=== PATIENT | female | born 1940 | race Asian ===

== ENCOUNTER 2016-12-28 17:01 | Inpatient (IN) | payer MEDICARE, MEDICAID ==
[~2016-12-28] VITALS: Ht 152.4 cm; Wt 63.5 kg
[~2016-12-28 17:01] MED LIST: ASPI-231 PO; CLOP75TA28 PO; DOCU250C3 PO; FURO40TA PO; GABA-497 PO; LORA-352 PO; LORA-653 PO; METF-372 OR; METH750T3 PO; METROPROLOL PO; OME40GT PO; RANI300T3 PO; TRIP2.5T9 PO; VALS40TA2 PO; VYTORIN PO; actos PO
[2016-12-28 18:31] LABS: Basophils # (auto) 0 uL; Basophils % (auto) 0.5 % (0.0-2.0); Eosinophils # (auto) 0.2 uL; Eosinophils % (auto) 2.3 % (0.0-7.0); Hematocrit 29.2 % (36.0-46.0); Hemoglobin 9.8 g/dL (12.2-16.2); Lymphocytes # (auto) 2.4 uL; Lymphocytes % (auto) 26.7 % (10.0-50.0); Mean Corpuscular Hemoglobin 29.1 pg (28.0-32.0); Mean Corpuscular Hgb Conc. 33.4 g/dL (32.0-36.0); Mean Corpuscular Volume 87.1 fL (80.0-100.0); Mean Platelet Volume 6.3 fL (6.9-10.8); Monocytes # (auto) 0.8 uL; Monocytes % (auto) 9.4 % (0.0-12.0); Neutrophils # (auto) 5.5 uL; Neutrophils % (auto) 61.1 % (37.0-80.0); Nucleated Red Blood Cells % 0.1 %; Platelet Count (auto) 295 10^3/uL (140-450); Red Cell Distribution Width 13.4 % (11.8-14.3); White Blood Cell 8.9 10^3/uL (4.4-10.8)
[2016-12-28 18:54] LABS: Albumin 2.2 g/dL (3.4-5.0); BUN/Creatinine Ratio 19.1; Bilirubin, Total 0.3 mg/dL (0.2-1.0); Magnesium 2.6 mg/dL (1.6-2.6); Potassium 4.4 mmol/L (3.5-5.1); Total Protein 6.6 g/dL (6.4-8.2)
[2016-12-28 20:50] LABS: INR 1.04 (0.9-1.15); Partial Thromboplastin Time 34.8 sec (22.64-33.71); Prothrombin Time 11.3 sec (9.37-12.3)
[2016-12-28 21:16] LABS: Temperature: 21.5 C (20.0-25.0)
[2016-12-29] MEDS ORDERED: FUROSEMIDE 20 MG/2 ML VIAL IV ONE ×2 (00:15→13:00)
[2016-12-29] MEDS ORDERED: ACETAMINOPHEN 325 MG TAB PO PRN (01:45)
[2016-12-29] MEDS ORDERED: NITROGLYCERIN 0.4 MG SL TAB SL PRN (01:45)
[2016-12-29] MEDS ORDERED: MORPHINE SULF INJ 2 MG/ML SYRINGE 1ML IV PRN (01:45)
[2016-12-29] MEDS ORDERED: DEXTROSE (50%) 50ML SYRG IV PRN (01:45)
[2016-12-29] MEDS ORDERED: cloNIDine HCL 0.1 MG TAB PO ONE (01:45)
[2016-12-29] MEDS ORDERED: ONDANSETRON HCL 4 MG/2 ML VIAL IV PRN (01:45)
[2016-12-29] MEDS ORDERED: cloNIDine HCL 0.1 MG TAB PO PRN (01:45)
[2016-12-29] MEDS ORDERED: HYDROcodone-ACET 5/325MG TAB PO PRN (01:45)
[2016-12-29] MEDS ORDERED: TEMAZEPAM 15 MG CAP PO PRN (01:45)
[2016-12-29 03:40] VITALS: BP 103/56
[2016-12-29] MEDS: ACCU-CHEK COMFORT CURVE STRIP VI SCH ×2 (06:06→12:00)
[2016-12-29] MEDS: InsuLIN REG 1unit/0.01ml Soln (100units/ml) SC SCH ×2 (06:06→12:00)
[2016-12-29 08:55] VITALS: BP 112/53
[2016-12-29] MEDS ORDERED: ASPirin 81 mg TAB PO SCH (10:00)
[2016-12-29] MEDS ORDERED: VALSARTAN 80 MG TAB PO SCH (10:00)
[2016-12-29] MEDS ORDERED: METOPROLOL SUCCINATE XL 50 MG TAB PO SCH (10:00)
[2016-12-29] MEDS ORDERED: PANTOPRAZOLE 40 MG TAB PO SCH (10:00)
[2016-12-29] MEDS ORDERED: FUROSEMIDE 40 MG TAB PO SCH (10:00)
[2016-12-29] MEDS ORDERED: GABAPENTIN 300 MG CAP PO SCH (10:00)
[2016-12-29] MEDS ORDERED: ENOXAPARIN SOD 30 MG/0.3 ML SYRINGE SC SCH (10:00)
[2016-12-29] MEDS ORDERED: CLOPIDOGREL BISULFATE 75 MG TAB PO SCH (10:00)
[2016-12-29] MEDS ORDERED: DOXYCYCLINE 100 MG TAB/CAP PO SCH (11:00)
[2016-12-29 12:41] VITALS: BP 135/60
[2016-12-29] MEDS ORDERED: POTASSIUM CHL 10 Meq TABLET PO ONE (13:00)
[2016-12-29 14:38] VITALS: BP 135/60
== END 2016-12-29 13:50 | disposition home or self-care (01) | DRG 291 ==
LOC: ER 17:01 → EDBD 17:01 → TELE 17:02 → TELE-WESTW 12-29 03:28
PROVIDERS: ADMIT Nurse Practitioner; ATTEND Nurse Practitioner
DX: I13.0 Hypertensive heart and chronic kidney disease with heart failure and stage 1 through stage 4 chronic kidney disease, or unspecified chronic kidney disease (principal); I50.33 Acute on chronic diastolic (congestive) heart failure; E11.22 Type 2 diabetes mellitus with diabetic chronic kidney disease; E11.65 Type 2 diabetes mellitus with hyperglycemia; N17.9 Acute kidney failure, unspecified; N18.4 Chronic kidney disease, stage 4 (severe); G47.00 Insomnia, unspecified; I25.10 Atherosclerotic heart disease of native coronary artery without angina pectoris; D64.9 Anemia, unspecified; Z88.0 Allergy status to penicillin; Z79.899 Other long term (current) drug therapy; Z95.0 Presence of cardiac pacemaker; Z79.82 Long term (current) use of aspirin
CPT/HCPCS: 36415; 71010; 73030; 80053; 82962; 83036; 83735; 83880; 84484; 85025; 85379; 85610; 85730; 87081; 93005; J1815

== ENCOUNTER 2017-05-16 10:51 | Emergency (ER) | payer MEDICARE, MEDICAID ==
[~2017-05-16] VITALS: Ht 152.4 cm; Wt 56.7 kg
[~2017-05-16 10:51] MED LIST changes: -GABA-497 PO; +GABA300C10 PO
[2017-05-16 13:08] LABS: Basophils # (auto) 0 uL; Basophils % (auto) 0.2 % (0.0-2.0); Eosinophils # (auto) 0.1 uL; Eosinophils % (auto) 1.8 % (0.0-7.0); Hematocrit 35.7 % (36.0-46.0); Hemoglobin 11.9 g/dL (12.2-16.2); Lymphocytes # (auto) 2.9 uL; Lymphocytes % (auto) 36.2 % (10.0-50.0); Mean Corpuscular Hemoglobin 28.7 pg (28.0-32.0); Mean Corpuscular Hgb Conc. 33.3 g/dL (32.0-36.0); Mean Corpuscular Volume 86.3 fL (80.0-100.0); Monocytes # (auto) 0.6 uL; Monocytes % (auto) 7.3 % (0.0-12.0); Neutrophils # (auto) 4.3 uL; Neutrophils % (auto) 54.5 % (37.0-80.0); Nucleated Red Blood Cells % 0.2 %; Platelet Count (auto) 320 10^3/uL (140-450); Red Blood Cells 4.13 10^6/uL (4.0-5.20); White Blood Cell 7.9 10^3/uL (4.4-10.8)
[2017-05-16 13:28] LABS: Alanine Aminotransferase 14 U/L (13-56); Albumin 2.7 g/dL (3.4-5.0); Anion Gap 9 (5-15); Aspartate Aminotransferase 13 U/L (15-37); BUN/Creatinine Ratio 15.2; Blood Urea Nitrogen 25 mg/dL (7-18); Calcium 8.7 mg/dL (8.5-10.1); Carbon Dioxide 20 mmol/L (21-32); Chloride 104 mmol/L (98-107); GFR African American 39 mL/min; GFR Non-African American 32 mL/min; Glucose 307 mg/dL (74-106); Magnesium 2.7 mg/dL (1.6-2.6); Potassium 4.7 mmol/L (3.5-5.1); Sodium 133 mmol/L (136-145)
[2017-05-16 13:33] LABS: Alkaline Phosphatase 65 U/L (45-117); Bilirubin, Total 0.2 mg/dL (0.2-1.0)
[2017-05-16] MEDS ORDERED: SODIUM CHLORIDE 0.9% 500 ML IV ONE (15:45)
[2017-05-16] MEDS ORDERED: HYDROcodone-ACET 5/325MG TAB PO ONE (15:45)
[2017-05-16] MEDS ORDERED: cloNIDine HCL 0.1 MG TAB PO ONE (15:45)
[2017-05-16 16:58] VITALS: BP 129/64
== END 2017-05-16 17:46 | disposition home or self-care (01) ==
LOC: ER 10:51
DX: S40.012A Contusion of left shoulder, initial encounter (principal); S70.02XA Contusion of left hip, initial encounter; S90.31XA Contusion of right foot, initial encounter; R55 Syncope and collapse; I16.0 Hypertensive urgency; I10 Essential (primary) hypertension; I25.10 Atherosclerotic heart disease of native coronary artery without angina pectoris; E11.65 Type 2 diabetes mellitus with hyperglycemia; Z98.51 Tubal ligation status; Z96.89 Presence of other specified functional implants; Z79.82 Long term (current) use of aspirin; Z88.0 Allergy status to penicillin; W19.XXXA Unspecified fall, initial encounter; Y93.89 Activity, other specified; Y92.89 Other specified places as the place of occurrence of the external cause; Y99.8 Other external cause status
CPT/HCPCS: 36415; 70450; 73030; 73502; 73630; 80053; 83735; 84484; 85025; 93005

== ENCOUNTER 2017-08-07 20:07 | Inpatient (IN) | payer MEDICARE, MEDICAID ==
[~2017-08-07] VITALS: Ht 152.4 cm; Wt 59.1 kg
[2017-08-07] MEDS ORDERED: SODIUM CHLORIDE 0.9% 1,000 ML IVB ONE (20:33)
[2017-08-07 21:15] LABS: Basophils # (auto) 0 uL; Basophils % (auto) 0.1 % (0.0-2.0); Eosinophils # (auto) 0.2 uL; Eosinophils % (auto) 1.8 % (0.0-7.0); Hematocrit 29.4 % (36.0-46.0); Hemoglobin 9.8 g/dL (12.2-16.2); Lymphocytes # (auto) 1.8 uL; Lymphocytes % (auto) 19.2 % (10.0-50.0); Mean Corpuscular Hemoglobin 29.1 pg (28.0-32.0); Mean Corpuscular Hgb Conc. 33.4 g/dL (32.0-36.0); Mean Corpuscular Volume 87.1 fL (80.0-100.0); Monocytes # (auto) 1.1 uL; Monocytes % (auto) 11.8 % (0.0-12.0); Neutrophils # (auto) 6.2 uL; Neutrophils % (auto) 67.1 % (37.0-80.0); Platelet Count (auto) 400 10^3/uL (140-450); Red Blood Cells 3.37 10^6/uL (4.0-5.20); Red Cell Distribution Width 13.8 % (11.8-14.3); White Blood Cell 9.3 10^3/uL (4.4-10.8)
[2017-08-07 21:26] LABS: Alanine Aminotransferase 16 U/L (13-56); Albumin 2.1 g/dL (3.4-5.0); Amylase 61 U/L (25-115); Anion Gap 9 (5-15); Aspartate Aminotransferase 14 U/L (15-37); BUN/Creatinine Ratio 14.7; Blood Urea Nitrogen 24 mg/dL (7-18); Calcium 8.3 mg/dL (8.5-10.1); Carbon Dioxide 23 mmol/L (21-32); Chloride 105 mmol/L (98-107); GFR African American 39 mL/min; GFR Non-African American 33 mL/min; Glucose 215 mg/dL (74-106); Lipase 642 U/L (73-393); Potassium 4.4 mmol/L (3.5-5.1); Sodium 137 mmol/L (136-145)
[2017-08-07 21:31] LABS: Alkaline Phosphatase 58 U/L (45-117); Bilirubin, Total 0.3 mg/dL (0.2-1.0); Total Protein 6.5 g/dL (6.4-8.2)
[2017-08-07 22:19] LABS: INR 1.14 (0.9-1.15); Partial Thromboplastin Time 33.6 sec (22.64-33.71); Prothrombin Time 12.4 sec (9.37-12.3)
[2017-08-07] MEDS ORDERED: ACETAMINOPHEN 325 MG TAB PO PRN (23:45)
[2017-08-07] MEDS ORDERED: ONDANSETRON HCL 4 MG/2 ML VIAL IV PRN (23:45)
[2017-08-07] MEDS ORDERED: FUROSEMIDE 40 MG/4 ML VIAL IV ONE (23:45)
[2017-08-07] MEDS ORDERED: MORPHINE SULFATE 4 MG/ML SYR/VIAL IV PRN (23:45)
[2017-08-07] MEDS ORDERED: NITROGLYCERIN 0.4 MG SL TAB SL PRN (23:45)
[2017-08-07] MEDS ORDERED: ALBUTEROL SULF 2.5 MG/0.5ML(0.5%) NEB SOLN NEB PRN (23:45)
[2017-08-07] MEDS ORDERED: ENOXAPARIN SOD 100 MG/1 ML SYRINGE SC ONE (23:45)
[2017-08-07] MEDS ORDERED: DEXTROSE (50%) 50ML SYRG IV PRN (23:45)
[2017-08-07] MEDS ORDERED: HYDROcodone-ACET 5/325MG TAB PO PRN (23:45)
[2017-08-08] VITALS (9 sets, daily range): BP systolic 139–179; BP diastolic 47–76
[2017-08-08] MEDS: InsuLIN REG 1unit/0.01ml Soln (100units/ml) SC SCH ×4 (00:13→18:13)
[2017-08-08] MEDS: ACCU-CHEK COMFORT CURVE STRIP VI SCH ×4 (00:24→18:14)
[2017-08-08] MEDS: TEMAZEPAM 15 MG CAP PO PRN ×2 (03:23→22:13)
[2017-08-08 05:05] LABS: Urine Bacteria NONE SEEN /hpf (None Seen); Urine Blood 1+ /uL (Negative); Urine Hyaline Cast FEW /lpf (0 - 2); Urine Mucus FEW (None Seen); Urine Specific Gravity 1.006 (1.001-1.035); Urine WBC 1 /hpf (0 - 5)
[2017-08-08] MEDS: metroNIDAZOLE 500MG/100ML 100 ML IV SCH ×2 (05:53→17:00)
[2017-08-08] MEDS ORDERED: FUROSEMIDE 20 MG/2 ML VIAL IV SCH (06:00)
[2017-08-08 09:48] LABS: Basophils # (auto) 0 uL; Basophils % (auto) 0.5 % (0.0-2.0); Eosinophils # (auto) 0.2 uL; Eosinophils % (auto) 2.4 % (0.0-7.0); Hemoglobin 10.5 g/dL (12.2-16.2); Lymphocytes # (auto) 2.4 uL; Lymphocytes % (auto) 31.3 % (10.0-50.0); Mean Corpuscular Hemoglobin 28.9 pg (28.0-32.0); Mean Corpuscular Volume 87.5 fL (80.0-100.0); Monocytes # (auto) 0.7 uL; Monocytes % (auto) 8.8 % (0.0-12.0); Neutrophils # (auto) 4.3 uL; Platelet Count (auto) 419 10^3/uL (140-450); Red Blood Cells 3.65 10^6/uL (4.0-5.20); Red Cell Distribution Width 13.6 % (11.8-14.3); White Blood Cell 7.6 10^3/uL (4.4-10.8)
[2017-08-08] MEDS: LEVOFLOXACIN 250MG 50 ML IV SCH (09:56)
[2017-08-08] MEDS: ASPirin 81 mg TAB PO SCH (09:57)
[2017-08-08] MEDS: VALSARTAN 80 MG TAB PO SCH (09:58)
[2017-08-08] MEDS: METOPROLOL SUCCINATE XL 50 MG TAB PO SCH (09:58)
[2017-08-08] MEDS: PANTOPRAZOLE 40 MG TAB PO SCH (09:58)
[2017-08-08] MEDS: GABAPENTIN 300 MG CAP PO SCH ×2 (09:59→22:13)
[2017-08-08] MEDS: CLOPIDOGREL BISULFATE 75 MG TAB PO SCH (09:59)
[2017-08-08] MEDS ORDERED: ENOXAPARIN SOD 30 MG/0.3 ML SYRINGE SC SCH (10:00)
[2017-08-08 10:05] LABS: Albumin 2.3 g/dL (3.4-5.0); BUN/Creatinine Ratio 11.1; Calcium 8.4 mg/dL (8.5-10.1); Potassium 3.8 mmol/L (3.5-5.1)
[2017-08-08 10:08] LABS: Bilirubin, Total 0.3 mg/dL (0.2-1.0); Total Protein 6.6 g/dL (6.4-8.2)
[2017-08-08] MEDS ORDERED: FUROSEMIDE 40 MG/4 ML VIAL IV ONE (10:30)
[2017-08-08] MEDS: cloNIDine HCL 0.1 MG TAB PO PRN (11:41)
[2017-08-08] MEDS: FUROSEMIDE 40 MG/4 ML VIAL IV SCH (18:13)
[2017-08-08] MEDS: ENOXAPARIN SOD 60 MG/0.6 ML SYRINGE SC SCH (22:14)
[2017-08-09] MEDS: ACCU-CHEK COMFORT CURVE STRIP VI SCH ×4 (00:35→18:22)
[2017-08-09] MEDS: InsuLIN REG 1unit/0.01ml Soln (100units/ml) SC SCH ×4 (00:35→18:22)
[2017-08-09 05:00] VITALS: BP 146/70
[2017-08-09] MEDS: FUROSEMIDE 40 MG/4 ML VIAL IV SCH ×2 (06:14→18:21)
[2017-08-09 09:00] VITALS: BP 149/66
[2017-08-09] MEDS: LEVOFLOXACIN 250MG 50 ML IV SCH (10:03)
[2017-08-09] MEDS: CLOPIDOGREL BISULFATE 75 MG TAB PO SCH (10:04)
[2017-08-09] MEDS: ASPirin 81 mg TAB PO SCH (10:04)
[2017-08-09] MEDS: VALSARTAN 80 MG TAB PO SCH (10:04)
[2017-08-09] MEDS: GABAPENTIN 300 MG CAP PO SCH ×2 (10:04→22:04)
[2017-08-09] MEDS: PANTOPRAZOLE 40 MG TAB PO SCH (10:05)
[2017-08-09] MEDS: ENOXAPARIN SOD 60 MG/0.6 ML SYRINGE SC SCH (10:05)
[2017-08-09] MEDS: METOPROLOL SUCCINATE XL 50 MG TAB PO SCH (10:05)
[2017-08-09 13:00] VITALS: BP 163/81
[2017-08-09] MEDS ORDERED: VANCOMYCIN PER PHARMACY 0 MG IV SCH (13:15)
[2017-08-09] MEDS ORDERED: PIPERACILLIN-TAZOB 2.25GM 50 ML IV ONE (14:00)
[2017-08-09] MEDS: cloNIDine HCL 0.1 MG TAB PO PRN (14:28)
[2017-08-09] MEDS ORDERED: APIXABAN 5 MG TAB PO ONE (14:53)
[2017-08-09] MEDS ORDERED: VANCOMYCIN 500 MG in D5W 5% 100 ML IV ONE (15:00)
[2017-08-09] MEDS ORDERED: VANCOMYCIN 500 MG in D5W 5% 100 ML IV SCH (15:00)
[2017-08-09 15:02] LABS: Potassium 3.9 mmol/L (3.5-5.1)
[2017-08-09 15:08] LABS: Albumin 2.2 g/dL (3.4-5.0); BUN/Creatinine Ratio 15.1; Calcium 8.3 mg/dL (8.5-10.1)
[2017-08-09 15:11] LABS: Bilirubin, Total 0.3 mg/dL (0.2-1.0); Total Protein 6.4 g/dL (6.4-8.2)
[2017-08-09 17:00] VITALS: BP 141/78
[2017-08-09] MEDS ORDERED: PIPERACILLIN-TAZOB 2.25GM 50 ML IV SCH (18:00)
[2017-08-09] MEDS ORDERED: RIVAROXABAN 15 MG TAB PO SCH (22:00)
[2017-08-09 22:45] VITALS: BP 141/61
[2017-08-10] MEDS: ACCU-CHEK COMFORT CURVE STRIP VI SCH ×5 (00:01→23:32)
[2017-08-10] MEDS: InsuLIN REG 1unit/0.01ml Soln (100units/ml) SC SCH ×5 (00:02→23:32)
[2017-08-10] MEDS ORDERED: APIXABAN 5 MG TAB PO SCH (05:00)
[2017-08-10] MEDS: FUROSEMIDE 40 MG/4 ML VIAL IV SCH (05:25)
[2017-08-10 05:45] VITALS: BP 114/58
[2017-08-10 06:47] LABS: Albumin 2.1 g/dL (3.4-5.0); BUN/Creatinine Ratio 13.8; Calcium 8.1 mg/dL (8.5-10.1); Potassium 3.8 mmol/L (3.5-5.1)
[2017-08-10 06:49] LABS: Bilirubin, Total 0.3 mg/dL (0.2-1.0); Total Protein 6.3 g/dL (6.4-8.2)
[2017-08-10 09:00] VITALS: BP 145/70
[2017-08-10] MEDS: ASPirin 81 mg TAB PO SCH (09:52)
[2017-08-10] MEDS: GABAPENTIN 300 MG CAP PO SCH ×2 (09:53→21:13)
[2017-08-10] MEDS: VALSARTAN 80 MG TAB PO SCH (09:53)
[2017-08-10] MEDS: PANTOPRAZOLE 40 MG TAB PO SCH (09:54)
[2017-08-10] MEDS: CLOPIDOGREL BISULFATE 75 MG TAB PO SCH (09:54)
[2017-08-10] MEDS: METOPROLOL SUCCINATE XL 50 MG TAB PO SCH (09:55)
[2017-08-10] MEDS: LEVOFLOXACIN 250 MG TAB PO SCH (12:10)
[2017-08-10 13:00] VITALS: BP 138/59
[2017-08-10 16:58] VITALS: BP 140/60
[2017-08-10] MEDS: TEMAZEPAM 15 MG CAP PO PRN (21:14)
[2017-08-10 22:00] VITALS: BP 163/72
[2017-08-11 03:22] VITALS: BP 163/72
[2017-08-11 05:00] VITALS: BP 134/58
[2017-08-11] MEDS: InsuLIN REG 1unit/0.01ml Soln (100units/ml) SC SCH ×2 (06:00→12:23)
[2017-08-11] MEDS: ACCU-CHEK COMFORT CURVE STRIP VI SCH ×2 (06:13→12:23)
[2017-08-11 07:24] LABS: Albumin 2.2 g/dL (3.4-5.0); Potassium 3.7 mmol/L (3.5-5.1)
[2017-08-11 07:27] LABS: BUN/Creatinine Ratio 17.5; Calcium 8.7 mg/dL (8.5-10.1)
[2017-08-11 07:30] LABS: Bilirubin, Total 0.3 mg/dL (0.2-1.0); Total Protein 6.5 g/dL (6.4-8.2)
[2017-08-11 08:13] VITALS: BP 163/51
[2017-08-11] MEDS ORDERED: FUROSEMIDE 40 MG/4 ML VIAL IV SCH (10:00)
[2017-08-11] MEDS: ASPirin 81 mg TAB PO SCH (10:23)
[2017-08-11] MEDS: CLOPIDOGREL BISULFATE 75 MG TAB PO SCH (10:24)
[2017-08-11] MEDS: LEVOFLOXACIN 250 MG TAB PO SCH (10:24)
[2017-08-11] MEDS: PANTOPRAZOLE 40 MG TAB PO SCH (10:24)
[2017-08-11] MEDS: GABAPENTIN 300 MG CAP PO SCH (10:24)
[2017-08-11] MEDS: VALSARTAN 80 MG TAB PO SCH (10:24)
[2017-08-11] MEDS: METOPROLOL SUCCINATE XL 50 MG TAB PO SCH (10:25)
[2017-08-11] MEDS ORDERED: hydrALAZINE HCL 10 MG TAB PO ONE (11:15)
[2017-08-11 14:23] VITALS: BP 140/70
[2017-08-16] MEDS ORDERED: APIXABAN 5 MG TAB PO SCH (17:00)
== END 2017-08-11 16:15 | disposition home or self-care (01) | DRG 291 ==
LOC: ER 20:07 → EDBD 20:07 → TELE 20:08 → TELE-CENTR 08-08 04:00 → CENTRAL 08-10 12:07
PROVIDERS: ADMIT Nurse Practitioner; ATTEND Internal Medicine Pulmonary Disease
DX: I13.0 Hypertensive heart and chronic kidney disease with heart failure and stage 1 through stage 4 chronic kidney disease, or unspecified chronic kidney disease (principal); K85.80 Other acute pancreatitis without necrosis or infection; J96.20 Acute and chronic respiratory failure, unspecified whether with hypoxia or hypercapnia; E11.22 Type 2 diabetes mellitus with diabetic chronic kidney disease; E11.65 Type 2 diabetes mellitus with hyperglycemia; N18.3 Chronic kidney disease, stage 3 (moderate); I50.33 Acute on chronic diastolic (congestive) heart failure; I44.30 Unspecified atrioventricular block; D64.9 Anemia, unspecified; E78.5 Hyperlipidemia, unspecified; I25.10 Atherosclerotic heart disease of native coronary artery without angina pectoris; Z82.49 Family history of ischemic heart disease and other diseases of the circulatory system; Z83.3 Family history of diabetes mellitus; Z90.49 Acquired absence of other specified parts of digestive tract; Z95.0 Presence of cardiac pacemaker; Z88.0 Allergy status to penicillin; Z98.51 Tubal ligation status; Z79.82 Long term (current) use of aspirin; Z79.899 Other long term (current) drug therapy
CPT/HCPCS: 36415; 36600; 71045; 71046; 74176; 78582; 80053; 81001; 82150; 82805; 82962; 83036; 83605; 83690; 83735; 83880; 84484; 85025; 85379; 85610; 85730; 87040; 87077; 87081; 87186; 93005; 93306; 93970; 96361; 96365; 96367; 96372; 96375; J1815; J2543; J3490; J7060

== ENCOUNTER 2018-10-04 17:25 | Inpatient (IN) | payer MEDICARE, MEDICAID ==
[~2018-10-04] VITALS: Ht 152.4 cm; Wt 56.7 kg
[2018-10-04 18:15] LABS: Basophils # (auto) 0.1 uL; Eosinophils # (auto) 0.1 uL; Eosinophils % (auto) 1.5 % (0.0-7.0); Hematocrit 34.5 % (36.0-46.0); Hemoglobin 11.1 g/dL (12.2-16.2); Lymphocytes # (auto) 1.3 uL; Lymphocytes % (auto) 19.2 % (10.0-50.0); Mean Corpuscular Hemoglobin 29.8 pg (28.0-32.0); Mean Corpuscular Hgb Conc. 32.3 g/dL (32.0-36.0); Mean Corpuscular Volume 92.3 fL (80.0-100.0); Monocytes # (auto) 0.5 uL; Monocytes % (auto) 6.9 % (0.0-12.0); Neutrophils # (auto) 4.6 uL; Neutrophils % (auto) 70.4 % (37.0-80.0); Platelet Count (auto) 267 10^3/uL (140-450); Red Blood Cells 3.74 10^6/uL (4.0-5.20); Red Cell Distribution Width 14.9 % (11.8-14.3); White Blood Cell 6.5 10^3/uL (4.4-10.8)
[2018-10-04 18:25] LABS: Calcium 8.6 mg/dL (8.5-10.1)
[2018-10-04 18:34] LABS: Albumin 3.3 g/dL (3.4-5.0); BUN/Creatinine Ratio 5.1; Bilirubin, Total 0.4 mg/dL (0.2-1.0); Total Protein 7.5 g/dL (6.4-8.2)
[2018-10-04 18:37] LABS: INR 1.04 (0.9-1.15); Partial Thromboplastin Time 33.2 sec (23.64-32.05)
[2018-10-04] MEDS ORDERED: LABETALOL HCL 5 MG/ML ML 20ML VIAL IV ONE (19:30)
[2018-10-04 20:43] LABS: Urine Bacteria NONE SEEN /hpf (None Seen); Urine Blood TRACE /uL (Negative); Urine Specific Gravity 1.008 (1.001-1.035); Urine WBC 18 /hpf (0 - 5)
[2018-10-04] MEDS ORDERED: DEXTROSE (50%) 50ML SYRG IV PRN (22:00)
[2018-10-04] MEDS ORDERED: VANCOMYCIN 1GM/250ML 250 ML IV ONE (22:00)
[2018-10-04] MEDS ORDERED: LORazepam 2MG/ML-1ML VIAL IV PRN (22:00)
[2018-10-04] MEDS ORDERED: ACETAMINOPHEN 650 MG RECT SUPP PR PRN (22:00)
[2018-10-04] MEDS ORDERED: ACETAMINOPHEN 650 MG RECT SUPP PR ONE (22:00)
[2018-10-04] MEDS ORDERED: hydrALAZINE HCL 20 MG/ML VL IV PRN (22:15)
[2018-10-04] MEDS ORDERED: FUROSEMIDE 20 MG/2 ML VIAL IV SCH (22:15)
[2018-10-04] MEDS ORDERED: VANCOMYCIN PER PHARMACY 0 MG IV SCH (22:15)
[2018-10-04] MEDS ORDERED: LEVOFLOXACIN 250MG 50 ML IV ONE (23:00)
[2018-10-04] MEDS: ACCU-CHEK COMFORT CURVE STRIP VI SCH (23:33)
[2018-10-04] MEDS: InsuLIN REG 1unit/0.01ml Soln (100units/ml) SC SCH (23:33)
[2018-10-05] VITALS (7 sets, daily range): BP systolic 129–162; BP diastolic 60–86
--- NOTE | 2018-10-05 00:15 | NUR ---
tele admit from ER. pt arrived via stretcher with 4 family accompanying. pt awake, alert and oriented. no distress noted or expressed. pt denied any pain via translation from family. pt ambulated to bed with standby assist. pt bed locked, in lowest position and siderails up x2. pt on 2L NC saturation 95%. pt oriented to nurse Colon, room, call light and tv. pt is tele 21, showing paced rhythm in the 70's. pt family reports dialysis fistula left upper arm as well as dialysis port right upper chest. pt has 20g iv to right forearm, flushes easily, dressing CDI. pt an dfamily updated on plan of care. no further questions from family and confirmed with family that pt has no additional questions. pt is NPO for difficulty swallowing pending eval from speech therapy. bed alarm activated. call light in reach. will round on pt q1hr and prn.
[2018-10-05] MEDS: InsuLIN REG 1unit/0.01ml Soln (100units/ml) SC SCH ×4 (06:27→23:34)
[2018-10-05] MEDS: ACCU-CHEK COMFORT CURVE STRIP VI SCH ×4 (06:28→23:35)
[2018-10-05 08:20] LABS: Basophils # (auto) 0 uL; Basophils % (auto) 0.5 % (0.0-2.0); Eosinophils # (auto) 0.1 uL; Eosinophils % (auto) 0.9 % (0.0-7.0); Hematocrit 29.6 % (36.0-46.0); Hemoglobin 9.8 g/dL (12.2-16.2); Lymphocytes # (auto) 1.5 uL; Lymphocytes % (auto) 26.1 % (10.0-50.0); Mean Corpuscular Hemoglobin 30.5 pg (28.0-32.0); Mean Corpuscular Volume 92.4 fL (80.0-100.0); Monocytes # (auto) 0.6 uL; Monocytes % (auto) 9.9 % (0.0-12.0); Neutrophils # (auto) 3.6 uL; Neutrophils % (auto) 62.6 % (37.0-80.0); Nucleated Red Blood Cells % 0.1 %; Platelet Count (auto) 227 10^3/uL (140-450); Red Cell Distribution Width 14.8 % (11.8-14.3); White Blood Cell 5.8 10^3/uL (4.4-10.8)
[2018-10-05 08:22] LABS: Anion Gap 9 (5-15); BUN/Creatinine Ratio 6.7; Blood Urea Nitrogen 17 mg/dL (7-18); Calcium 8.2 mg/dL (8.5-10.1); Carbon Dioxide 28 mmol/L (21-32); Chloride 106 mmol/L (98-107); GFR African American 23 mL/min; GFR Non-African American 19 mL/min; Glucose 155 mg/dL (74-106); Sodium 143 mmol/L (136-145)
[2018-10-05] MEDS ORDERED: ENOXAPARIN SOD 40 MG/0.4 ML SYRINGE SC SCH (10:00)
[2018-10-05] MEDS: LEVOFLOXACIN 250MG 50 ML IV SCH (11:12)
[2018-10-05] MEDS: FAMOTIDINE (10MG/ML) 2ML VL IV SCH (11:13)
[2018-10-05] MEDS: ENOXAPARIN SOD 30 MG/0.3 ML SYRINGE SC SCH (11:13)
--- NOTE | 2018-10-05 11:26 | NUR ---
SWALLOW EVALUATED WITH FAMILY PRESENT AND TRANSLATING TO PATIENT. PATIENT HAS DENTURES UPPER AND LOWER. PATIENT NEEDED MAXIMUM CUEING AND ENCOURAGEMENT TO SWALLOW PUREE TRIAL. PATIENT ABLE TO TOLERATE PUREE DIET TEXTURE WITH THIN LIQUIDS WITH NO OVERT SIGNS OR SYMPTOMS OF ASPIRATION. NURSING NOTIFIED. PATIENT WILL NEED ASSISTANCE WITH FEEDING.
--- NOTE | 2018-10-05 11:30 | NUR ---
Scheduled accu-check done via pt's [employer] device by family member, with reading of 202. Sliding scale, regular Insulin administered as ordered.
[2018-10-05] MEDS ORDERED: LORazepam 2MG/ML-1ML VIAL IV PRN (13:00)
[2018-10-05] MEDS ORDERED: hydrALAZINE HCL 20 MG/ML VL IV PRN (13:15)
--- NOTE | 2018-10-05 13:30 | NUR ---
Call placed to [facility] for pacemaker interrogation at per Dr. Chacon's request.
[2018-10-05 13:37] LABS: Cholesterol 123 mg/dL (< 200); Triglycerides 84 mg/dL (< 150)
[2018-10-05 13:39] LABS: HDL Cholesterol 57 mg/dL (40-59); LDL Cholesterol 67 mg/dL (< 100)
--- NOTE | 2018-10-05 15:30 | NUR ---
Per visit from [facility] hardware technician, pt is serviced by [employer].
--- NOTE | 2018-10-05 15:45 | NUR ---
Called placed to Ajaline at for pacemaker interrogation.
--- NOTE | 2018-10-05 19:40 | NUR ---
open note assumed care of pt. upon entering room pt awake, alert and oriented x4. family at bedside. pt on 2L NC no distress noted or expressed. pt denies pain. pt and family updated on plan of care. no additional questions at this time. pt and family made aware that pacer is to be interrogated in the AM. call light in reach, button modified that pt is able to locate and press to alert staff of need. will round on pt q1hr and prn. bed alarm on.
[2018-10-05] MEDS: ATORVASTATIN 20 MG TAB PO SCH (22:24)
[2018-10-06 05:00] VITALS: BP 160/79
[2018-10-06] MEDS: ACCU-CHEK COMFORT CURVE STRIP VI SCH ×4 (06:30→23:07)
[2018-10-06] MEDS: InsuLIN REG 1unit/0.01ml Soln (100units/ml) SC SCH ×4 (06:30→23:06)
--- NOTE | 2018-10-06 06:36 | NUR ---
RECEIVED PT OFF CPAP MACHINE. PT ON ROOM AIR, SPO2 94%.
[2018-10-06 06:41] LABS: Potassium 4.4 mmol/L (3.5-5.1)
[2018-10-06 06:49] LABS: Basophils # (auto) 0 uL; Basophils % (auto) 0.4 % (0.0-2.0); Eosinophils # (auto) 0.1 uL; Eosinophils % (auto) 1.5 % (0.0-7.0); Hematocrit 30.7 % (36.0-46.0); Hemoglobin 10.2 g/dL (12.2-16.2); Lymphocytes # (auto) 1.6 uL; Lymphocytes % (auto) 21.5 % (10.0-50.0); Mean Corpuscular Hemoglobin 30.9 pg (28.0-32.0); Mean Corpuscular Hgb Conc. 33.3 g/dL (32.0-36.0); Mean Corpuscular Volume 92.9 fL (80.0-100.0); Monocytes # (auto) 0.7 uL; Monocytes % (auto) 8.7 % (0.0-12.0); Neutrophils # (auto) 5.1 uL; Neutrophils % (auto) 67.9 % (37.0-80.0); Nucleated Red Blood Cells % 0.1 %; Platelet Count (auto) 221 10^3/uL (140-450); White Blood Cell 7.4 10^3/uL (4.4-10.8)
[2018-10-06 06:50] LABS: BUN/Creatinine Ratio 6.6; Bilirubin, Total 1.1 mg/dL (0.2-1.0); Magnesium 2.6 mg/dL (1.6-2.6); Total Protein 6.8 g/dL (6.4-8.2)
--- NOTE | 2018-10-06 07:30 | NUR ---
OPENING SHIFT NOTE: Received report from NOC RNIsaiah. Assumed care of patient. Patient lying in bed, sleeping, no signs/symptoms of pain. Bed in lowest position, rails x2 up and call light within reach. Updated on plan of care. Will continue to monitor.
[2018-10-06 09:11] VITALS: BP 159/76
[2018-10-06] MEDS: ASPirin-EC 81 mg tab PO SCH (09:42)
[2018-10-06] MEDS: ENOXAPARIN SOD 30 MG/0.3 ML SYRINGE SC SCH (09:43)
[2018-10-06] MEDS: LEVOFLOXACIN 250MG 50 ML IV SCH (09:43)
[2018-10-06] MEDS: FAMOTIDINE (10MG/ML) 2ML VL IV SCH (09:50)
--- NOTE | 2018-10-06 11:20 | NUR ---
MD: Dr Knight at bedside to see patient.
--- NOTE | 2018-10-06 11:40 | NUR ---
MRI: Called [facility] atm technician and informed him that per Dr Knight the patient's pacemaker is MRI compatible. [facility] is requesting to see pacemaker card. Copy of pacemaker card made and left in front of chart. [facility]ias is aware.
--- NOTE | 2018-10-06 12:00 | NUR ---
MD: Dr Barbosa at bedside to see patient.
[2018-10-06] MEDS: ONDANSETRON HCL 4 MG/2 ML VIAL IV PRN ×2 (12:45→17:00)
[2018-10-06] MEDS ORDERED: FLUCONAZOLE 200MG/100ML 100 ML IV ONE (12:45)
--- NOTE | 2018-10-06 12:46 | NUR ---
NAUSEA/EMESIS: RN called to room. Patient had been eating lunch with family at bedside and began to throw up. Patient noted to have emesis that consisted of eaten food. Medicated with Zofran as ordered. Patient in no distress. Will continue to monitor.
[2018-10-06 13:00] VITALS: BP 166/73
--- NOTE | 2018-10-06 13:01 | NUR ---
MRI: S/W [facility], business office technician. Pacemaker is MRI compatible. [facility] has placed a call out to tech to schedule a time to do MRI since pacemaker will need to be turned off for scan and then restarted. Dr Knight is aware.
--- NOTE | 2018-10-06 13:45 | NUR ---
MRI: Spoke to [facility] who spoke to Dr Falcon. MRI will be cancelled right now per Dr Falcon's request. MD to come see patient and plan is to order a follow up head CT instead.
--- NOTE | 2018-10-06 14:47 | NUR ---
Per SS consult SNF Placement. Information and Choice letter was given to Pt. Pt was unable to speak due to her weakens and change of speech. Per Pt daughter Surekha requested [facility]. Pt daughter agrees and understand d/c plan. Contacted [facility] ) ) faxed medical records. Per Candace from [facility] Pt has been accepted and she will come see pt tomorrow 10/07/18 at bed side. Informed RN Francine. Addendum: 10/06/18 at 1501 by KARLEY SHRESTHA Amended: Links added. Addendum: 10/07/18 at 1727 by KARLEY SHRESTHA Contacted [facility] transportation Ph: ) Fax: ) faxed medical records. Per Rosanna from [facility] they will call RN Juwan once they have cherry picker operator time available for today. Informed CHIQUI Echeverria.
[2018-10-06 16:55] VITALS: BP 152/73
--- NOTE | 2018-10-06 18:55 | NUR ---
MD: Dr Falcon to see patient. is cancelling MRI and will order for a repeat/follow up head CT.
--- NOTE | 2018-10-06 19:19 | NUR ---
CLOSING SHIFT NOTE: Report given to NOC RNIvonne. Endorsed care of patient.
--- NOTE | 2018-10-06 19:30 | NUR ---
Opening shift note Patient in bed alert and oriented x 3, able to understand Gambian only. Patient noted aphasic, however, able to nod head for yes or no when family talks to patient in Gambian. Patient's respiration even and unlabored, denies pain and discomfort at this time. Plan of care discussed, patient and family verbalized understanding. All needs attended, will continue to monitor.
--- NOTE | 2018-10-06 19:40 | NUR ---
Pt off unit for CT head. Picked up by radiology via wheelchair.
--- NOTE | 2018-10-06 20:05 | NUR ---
Patient back in bed in stable condition. Will continue to monitor.
--- NOTE | 2018-10-06 20:30 | NUR ---
Pt accidentally wet self while drinking water assisted by daughter. Dressing to [facility] cath dialysis soiled and wet. Dressing change done. Pt tolerated procedure well.
--- NOTE | 2018-10-06 20:35 | NUR ---
Additional contact lens cutter provided by dtr. Password set up done.
[2018-10-06 21:33] VITALS: BP 161/86
[2018-10-06] MEDS: ATORVASTATIN 20 MG TAB PO SCH (21:40)
--- NOTE | 2018-10-06 22:50 | NUR ---
Patient removed CPAP machine. Refused to have it reattached. No SOB noted and observed. Will continue to monitor.
[2018-10-07 04:25] VITALS: BP 140/83
[2018-10-07] MEDS: InsuLIN REG 1unit/0.01ml Soln (100units/ml) SC SCH ×3 (05:30→18:00)
[2018-10-07] MEDS: ACCU-CHEK COMFORT CURVE STRIP VI SCH ×3 (05:30→18:01)
[2018-10-07] MEDS ORDERED: SODIUM CHL 0.9% 1000 ML BAG XX ONE (07:00)
--- NOTE | 2018-10-07 07:18 | NUR ---
Respiratory note: PT ALREADY OFF CPAP, SLEEPING COMFORTABLY IN BED. NO S/S OF RESPIRATORY DISTRESS. WROTE RT NAME AND PAGER NUMBER ON WHITEBOARD.
--- NOTE | 2018-10-07 07:30 | NUR ---
Opening Shift Note Assumed care of patient, resting comfortably. No S/S of distress/SOB or pain. Instructed on POC and to call for assist PRN, will continue to monitor for changes Q1hr and PRN. Bed in low and locked position, rails up x2, no-slip socks on.
[2018-10-07 09:00] VITALS: BP 156/75
--- NOTE | 2018-10-07 09:20 | NUR ---
[facility] [employer] AT BEDSIDE SPOKE TO FAMILY, A[place]- DAUGHTER
[2018-10-07] MEDS ORDERED: FLUCONAZOLE 200MG/100ML 100 ML IV SCH (10:00)
--- NOTE | 2018-10-07 10:30 | NUR ---
IV removal AND IV insertion IV DC'd with clean sterile technique, catheter fully intact. Pressure dressing applied to site. Patient tolerated well. IV access obtained, via clean sterile technique by inserting 22 gauge catheter at right forearm after 3 attempts. IV secured properly. No trauma to site. Patient tolerated well.
--- NOTE | 2018-10-07 10:35 | NUR ---
DR GAN AT BEDSIDE
--- NOTE | 2018-10-07 11:15 | NUR ---
FAMILY CALL PASSWORD VERIFIED, SPOKE TO PATIENTS DAUGHTER NATALY ([phone]), CONCERNED THAT PATIENT IS NOT GETTING AN MRI. PAGE SENT OUT TO DR GAN TO REQUEST A FAMILY PHONE CALL REGARDING PLAN OF CARE, AWAITING CALL BACK.
[2018-10-07] MEDS: ENOXAPARIN SOD 30 MG/0.3 ML SYRINGE SC SCH (12:11)
[2018-10-07] MEDS: ASPirin-EC 81 mg tab PO SCH (12:11)
[2018-10-07] MEDS: FAMOTIDINE (10MG/ML) 2ML VL IV SCH (12:11)
--- NOTE | 2018-10-07 12:15 | NUR ---
DR GAN AT BEDSIDE SPOKE TO NALLELY REGARDING CONCERNS ABOUT THE MRI. DR GAN EXPLAINED AT LENGTH THAT THEY WILL NOT NEED ADDITIONAL DIAGNOSTIC TESTING THE HEAD CT HAS SHOWN THE ACUTE STROKE. FAMILY VERBALIZES UNDERSTANDING AND IS ADVISED TO NOTIFY THE REST OF THE FAMILY TO ADDRESS THEIR QUESTIONS.
--- NOTE | 2018-10-07 12:24 | NUR ---
RACK WASHER AT BEDSIDE
[2018-10-07 13:00] VITALS: BP 157/81
--- NOTE | 2018-10-07 15:25 | NUR ---
DIALYSIS COMPLETED 2L REMOVED. PATIENT TOLERATED WELL BP 143/56 HR 69 RR 18 Addendum: 10/07/18 at 1703 by JACINDA WHEAT RN RN PER [facility], HE HAS ADMINISTERED HEPARIN AND EPOGEN ORDERED DURING DIALYSIS.
[2018-10-07 17:00] VITALS: BP 155/71
--- NOTE | 2018-10-07 18:54 | NUR ---
REPORT CALLED TO [facility] SPOKE TO BAUDILIO, CHARGE NURSE, , PATIENT GOING TO ROOM 108 WINDOW
--- NOTE | 2018-10-07 19:04 | NUR ---
DISCHARGE Discharge instructions given as ordered. Encourage to follow up with PMD as instructed. All questions and concerns addressed. Patient verbalized understanding. IV removed with catheter intact, pressure dressing applied. Telemetry unit returned to [facility]. Patient taken to vehicle via gurney with all personal belongings, accompanied by transportation staff and family members. No distress noted at time of departure.
[2018-10-07] MEDS ORDERED: EPOETIN ALFA 4,000 UNIT/ML VL SC ONE (21:00)
[2018-10-08] MEDS ORDERED: LEVOFLOXACIN 250MG 50 ML IV SCH (10:00)
== END 2018-10-07 19:05 | DRG 64 ==
LOC: ER 17:28 → TELE 17:29 → TELE-WESTW 22:48
PROVIDERS: ADMIT Nurse Practitioner Family; ATTEND Internal Medicine
PROC: 5A1D70Z Performance of Urinary Filtration, Intermittent, Less than 6 Hours Per Day (ICD-10-PCS; principal; 2018-10-07)
DX: I63.9 Cerebral infarction, unspecified (principal); N18.6 End stage renal disease; N39.0 Urinary tract infection, site not specified; G81.91 Hemiplegia, unspecified affecting right dominant side; I50.30 Unspecified diastolic (congestive) heart failure; I12.0 Hypertensive chronic kidney disease with stage 5 chronic kidney disease or end stage renal disease; E11.65 Type 2 diabetes mellitus with hyperglycemia; E11.22 Type 2 diabetes mellitus with diabetic chronic kidney disease; E78.5 Hyperlipidemia, unspecified; Z95.0 Presence of cardiac pacemaker; I25.10 Atherosclerotic heart disease of native coronary artery without angina pectoris; G47.10 Hypersomnia, unspecified; D63.1 Anemia in chronic kidney disease; E11.51 Type 2 diabetes mellitus with diabetic peripheral angiopathy without gangrene; F17.200 Nicotine dependence, unspecified, uncomplicated; I07.1 Rheumatic tricuspid insufficiency; I27.20 Pulmonary hypertension, unspecified; I49.5 Sick sinus syndrome; R13.10 Dysphagia, unspecified; Z79.02 Long term (current) use of antithrombotics/antiplatelets; Z79.899 Other long term (current) drug therapy; Z83.3 Family history of diabetes mellitus; Z99.2 Dependence on renal dialysis
CPT/HCPCS: 36415; 70450; 71045; 76881; 80048; 80053; 80061; 80202; 81001; 82010; 82962; 83036; 83605; 83735; 83880; 84484; 85025; 85610; 85730; 87040; 87086; 90935; 92610; 93005; 93306; 93886; 94660; 94761; 96365; 96375; G0378; J1450; J1642; J1815; J2405; J3490

== ENCOUNTER 2018-11-08 17:44 | Inpatient (IN) | payer MEDICARE, MEDICAID ==
[~2018-11-08] VITALS: Ht 157.5 cm; Wt 55.9 kg
[~2018-11-08 17:44] MED LIST changes: +FURO1TAB31 PO; -FURO40TA PO; -LORA-653 PO; +LORA0.5T11 PO
[2018-11-08] MEDS ORDERED: amLODIPine BESYLATE 5 MG TAB PO ONE (18:15)
[2018-11-08 19:39] LABS: Basophils # (auto) 0 uL; Basophils % (auto) 0.5 % (0.0-2.0); Eosinophils # (auto) 0.1 uL; Eosinophils % (auto) 1.2 % (0.0-7.0); Hematocrit 35.1 % (36.0-46.0); Hemoglobin 11.6 g/dL (12.2-16.2); Lymphocytes % (auto) 29.4 % (10.0-50.0); Mean Corpuscular Hemoglobin 30.3 pg (28.0-32.0); Mean Corpuscular Volume 91.7 fL (80.0-100.0); Monocytes # (auto) 0.6 uL; Monocytes % (auto) 8.4 % (0.0-12.0); Neutrophils % (auto) 60.5 % (37.0-80.0); Nucleated Red Blood Cells % 0.1 %; Platelet Count (auto) 254 10^3/uL (140-450); Red Blood Cells 3.83 10^6/uL (4.0-5.20); Red Cell Distribution Width 14.5 % (11.8-14.3); White Blood Cell 6.7 10^3/uL (4.4-10.8)
[2018-11-08 20:00] LABS: Alanine Aminotransferase 19 U/L (13-56); Albumin 3.4 g/dL (3.4-5.0); Anion Gap 7 (5-15); Aspartate Aminotransferase 32 U/L (15-37); BUN/Creatinine Ratio 5.4; Blood Urea Nitrogen 12 mg/dL (7-18); Calcium 8.9 mg/dL (8.5-10.1); Carbon Dioxide 29 mmol/L (21-32); Chloride 100 mmol/L (98-107); GFR African American 27 mL/min; GFR Non-African American 23 mL/min; Glucose 118 mg/dL (74-106); Potassium 3.7 mmol/L (3.5-5.1); Sodium 136 mmol/L (136-145)
[2018-11-08 20:04] LABS: Alkaline Phosphatase 77 U/L (45-117); Bilirubin, Total 0.4 mg/dL (0.2-1.0); Total Protein 7.6 g/dL (6.4-8.2)
[2018-11-08] MEDS ORDERED: cloNIDine HCL 0.1 MG TAB PO ONE (23:15)
[2018-11-09] MEDS ORDERED: NITROGLYCERIN 0.4 MG SL TAB SL PRN (02:00)
[2018-11-09] MEDS ORDERED: MORPHINE SULF INJ 2 MG/ML SYRINGE 1ML IV PRN (02:00)
[2018-11-09] MEDS ORDERED: ONDANSETRON HCL 4 MG/2 ML VIAL IV PRN (02:00)
[2018-11-09] MEDS ORDERED: ACETAMINOPHEN 500 MG TAB PO PRN (02:00)
[2018-11-09] MEDS ORDERED: ALPRAZolam 0.25 MG TAB PO PRN (02:00)
[2018-11-09 02:13] LABS: INR 1.08 (0.9-1.15); Partial Thromboplastin Time 29.1 sec (23.64-32.05)
[2018-11-09 04:45] VITALS: BP 116/69
[2018-11-09 05:20] VITALS: BP 116/69
[2018-11-09] MEDS ORDERED: traZODone HCL 50 MG TAB PO SCH (06:00)
[2018-11-09] MEDS ORDERED: hydrALAZINE HCL 25 MG TAB PO SCH (06:00)
[2018-11-09] MEDS ORDERED: GABAPENTIN 100 MG CAP PO SCH (06:00)
[2018-11-09] MEDS ORDERED: DEXTROSE (50%) 50ML SYRG IV PRN (06:45)
[2018-11-09] MEDS ORDERED: cloNIDine HCL 0.1 MG TAB PO PRN (06:45)
[2018-11-09] MEDS ORDERED: InsuLIN REG 1unit/0.01ml Soln (100units/ml) SC SCH (07:00)
[2018-11-09] MEDS ORDERED: ACCU-CHEK COMFORT CURVE STRIP VI SCH (07:00)
[2018-11-09] MEDS ORDERED: INSUINJ37 SC (07:53)
[2018-11-09] MEDS ORDERED: HYDR-2691 PO (07:55)
[2018-11-09] MEDS ORDERED: ALPR0.25 PO (07:56)
[2018-11-09] MEDS ORDERED: TRAZ50TA2 PO (07:57)
[2018-11-09] MEDS ORDERED: PANT40TA2 PO (07:57)
[2018-11-09] MEDS ORDERED: HYDR25CA PO (07:59)
[2018-11-09 08:00] VITALS: BP 125/51
[2018-11-09] MEDS ORDERED: ONDA-144 PO (08:00)
[2018-11-09] MEDS ORDERED: MECL-87 PO (08:01)
[2018-11-09 08:06] LABS: Basophils # (auto) 0 uL; Basophils % (auto) 0.4 % (0.0-2.0); Eosinophils # (auto) 0.1 uL; Eosinophils % (auto) 1.5 % (0.0-7.0); Hematocrit 30.8 % (36.0-46.0); Hemoglobin 10.5 g/dL (12.2-16.2); Lymphocytes # (auto) 2.2 uL; Lymphocytes % (auto) 43.5 % (10.0-50.0); Mean Corpuscular Hemoglobin 30.8 pg (28.0-32.0); Mean Corpuscular Hgb Conc. 34.1 g/dL (32.0-36.0); Mean Corpuscular Volume 90.3 fL (80.0-100.0); Monocytes # (auto) 0.5 uL; Monocytes % (auto) 10.7 % (0.0-12.0); Neutrophils # (auto) 2.2 uL; Neutrophils % (auto) 43.9 % (37.0-80.0); Platelet Count (auto) 229 10^3/uL (140-450); Red Blood Cells 3.41 10^6/uL (4.0-5.20); Red Cell Distribution Width 14.5 % (11.8-14.3)
[2018-11-09 08:22] LABS: Calcium 8.9 mg/dL (8.5-10.1)
[2018-11-09] MEDS ORDERED: ASPirin-EC 81 mg tab PO SCH (10:00)
[2018-11-09] MEDS ORDERED: DOCUSATE SOD 100 MG CAP PO SCH (10:00)
[2018-11-09] MEDS ORDERED: PANTOPRAZOLE 40 MG TAB PO SCH (10:00)
[2018-11-09 12:00] VITALS: BP 141/50
[2018-11-09 14:58] VITALS: BP 141/50
[2018-11-09] MEDS ORDERED: ATORVASTATIN 20 MG TAB PO SCH (22:00)
== END 2018-11-09 16:40 | disposition home or self-care (01) | DRG 304 ==
LOC: ER 17:44 → EDBD 17:44 → TELE 17:45 → TELE-WESTW 11-09 04:51
PROVIDERS: ADMIT Nurse Practitioner Family; ATTEND Nurse Practitioner Family
DX: I16.0 Hypertensive urgency (principal); N18.6 End stage renal disease; I69.351 Hemiplegia and hemiparesis following cerebral infarction affecting right dominant side; R47.01 Aphasia; I12.0 Hypertensive chronic kidney disease with stage 5 chronic kidney disease or end stage renal disease; E11.40 Type 2 diabetes mellitus with diabetic neuropathy, unspecified; K59.00 Constipation, unspecified; E11.22 Type 2 diabetes mellitus with diabetic chronic kidney disease; I27.20 Pulmonary hypertension, unspecified; E11.21 Type 2 diabetes mellitus with diabetic nephropathy; I25.10 Atherosclerotic heart disease of native coronary artery without angina pectoris; Z90.49 Acquired absence of other specified parts of digestive tract; Z98.51 Tubal ligation status; Z99.2 Dependence on renal dialysis; Z88.0 Allergy status to penicillin; Z95.0 Presence of cardiac pacemaker; Z79.02 Long term (current) use of antithrombotics/antiplatelets; Z79.899 Other long term (current) drug therapy; Z79.84 Long term (current) use of oral hypoglycemic drugs; Z83.3 Family history of diabetes mellitus
CPT/HCPCS: 36415; 74176; 80048; 80053; 82962; 83036; 83735; 83880; 84443; 84484; 85025; 85379; 85610; 85730; 93005; G0378; J1815

== ENCOUNTER 2019-05-07 09:55 | Emergency (ER) | payer MEDICARE, MEDICAID ==
[~2019-05-07] VITALS: Ht 152.4 cm; Wt 58.5 kg
[~2019-05-07 09:55] MED LIST changes: +ALPR0.25 PO; -FURO1TAB31 PO; +HYDR-2691 PO; +HYDR25CA PO; +INSUINJ37 SC; -LORA-352 PO; -LORA0.5T11 PO; +MECL-87 PO; -METF-372 OR; -METH750T3 PO; -METROPROLOL PO; -OME40GT PO; +ONDA-144 PO; +PANT40TA2 PO; -RANI300T3 PO; +TRAZ50TA2 PO; -TRIP2.5T9 PO; -VALS40TA2 PO; -VYTORIN PO
[2019-05-07 10:05] VITALS: BP 170/64
[2019-05-07] MEDS ORDERED: cefTRIAXone SOD 1,000 MG VL IM ONE (12:15)
== END 2019-05-07 12:48 | disposition home or self-care (01) ==
LOC: ER 09:55
DX: J02.9 Acute pharyngitis, unspecified (principal); J06.9 Acute upper respiratory infection, unspecified; E11.22 Type 2 diabetes mellitus with diabetic chronic kidney disease; I12.0 Hypertensive chronic kidney disease with stage 5 chronic kidney disease or end stage renal disease; N18.6 End stage renal disease; Z79.4 Long term (current) use of insulin; Z86.73 Personal history of transient ischemic attack (TIA), and cerebral infarction without residual deficits; Z98.51 Tubal ligation status; Z90.49 Acquired absence of other specified parts of digestive tract; Z95.0 Presence of cardiac pacemaker; Z88.0 Allergy status to penicillin; Z79.899 Other long term (current) drug therapy
CPT/HCPCS: 71045; 96372; 99283; J0696

== ENCOUNTER 2020-01-28 06:02 | Inpatient (IN) | payer MEDICARE, MEDICAID ==
[~2020-01-28] VITALS: Ht 152.4 cm; Wt 58.8 kg
[~2020-01-28 06:02] MED LIST changes: -ALPR0.25 PO; +AML5T PO; -ASPI-231 PO; +ATOR20TA50 PO; +BUSP7.5T10 PO; +ERGO1CAP12; +HYDR-3682 PO; -HYDR25CA PO; -MECL-87 PO; +MIRT30TA PO; -ONDA-144 PO; -PANT40TA2 PO; -TRAZ50TA2 PO; -actos PO
[2020-01-28] MEDS ORDERED: LIDOCAINE 2%HCL (LOCAL ANESTH.) INJ 20ML MDV ONE (07:14)
[2020-01-28] MEDS ORDERED: MIDAZOLAM HCL 1MG/1ML-2 ML VIAL ONE (07:40)
[2020-01-28] MEDS ORDERED: ANGIOMAX 250 MG VIAL IV ONE (07:40)
[2020-01-28] MEDS ORDERED: fentaNYL CITRATE 100 MCG/2 ML VL ONE (07:40)
[2020-01-28] MEDS ORDERED: VERAPAMIL 2.5MG/ML INJ 2ML VIAL IV ONE (07:40)
[2020-01-28] MEDS ORDERED: SODIUM CHL 0.9% 50 ML ONE (07:40)
[2020-01-28] MEDS ORDERED: HEPARIN SODIUM (PORCINE) 5000 UNITS/ML 1ML VIAL ONE (07:40)
[2020-01-28] MEDS ORDERED: CLOPIDOGREL BISULFATE 75 MG TAB ONE (08:18)
[2020-01-28] MEDS ORDERED: ASPirin 81 mg TAB ONE (08:19)
[2020-01-28] MEDS ORDERED: MORPHINE SULF INJ 2 MG/ML SYRINGE 1ML IV PRN (09:00)
[2020-01-28] MEDS ORDERED: NITROGLYCERIN 0.4 MG SL TAB SL PRN (09:00)
[2020-01-28] MEDS ORDERED: BUSPIRONE 7.5 MG PO PRN (09:00)
[2020-01-28] MEDS ORDERED: ACETAMINOPHEN 500 MG TAB PO PRN (09:00)
[2020-01-28] MEDS ORDERED: ONDANSETRON HCL 4 MG/2 ML VIAL IV PRN (09:00)
[2020-01-28] MEDS ORDERED: DEXTROSE (50%) 50ML SYRG IV PRN (09:00)
[2020-01-28] MEDS ORDERED: HYDROcodone-ACET 5/325MG TAB PO PRN (09:00)
[2020-01-28] MEDS: CLOPIDOGREL BISULFATE 75 MG TAB PO SCH (09:23)
[2020-01-28] MEDS: DOCUSATE SOD 100 MG CAP PO SCH ×2 (09:24→21:26)
[2020-01-28] MEDS: amLODIPine BESYLATE 5 MG TAB PO SCH (10:00)
[2020-01-28] MEDS ORDERED: ATORVASTATIN 20 MG TAB PO SCH ×2 (10:00→22:00)
[2020-01-28] MEDS: hydrALAZINE HCL 25 MG TAB PO SCH ×2 (10:00→21:27)
[2020-01-28] MEDS: ACCU-CHEK COMFORT CURVE STRIP VI SCH ×3 (10:44→21:28)
[2020-01-28] MEDS: InsuLIN REG 1unit/0.01ml Soln (100units/ml) SC SCH ×2 (10:44→17:47)
[2020-01-28] MEDS ORDERED: INSU1INJ19 SC (11:16)
[2020-01-28] MEDS ORDERED: GABA100C9 PO (11:16)
[2020-01-28] MEDS ORDERED: PANT40TA2 PO (11:17)
[2020-01-28] MEDS ORDERED: MIRT1TAB38 PO (11:17)
[2020-01-28] MEDS ORDERED: INSU100I49 SC (11:17)
[2020-01-28] MEDS ORDERED: DILT180C39 PO (11:17)
[2020-01-28] MEDS ORDERED: B-COTAB10 PO (11:17)
[2020-01-28] MEDS ORDERED: INSU100I51 SC (11:17)
[2020-01-28] MEDS ORDERED: INSULIN LANTUS (GLARGINE) 1 /0.01ml (100units/ml) SC SCH (11:30)
[2020-01-28 13:00] VITALS: BP 158/54
[2020-01-28] MEDS: hydrOXYzine 25 MG TAB or CAP PO SCH ×2 (15:15→21:26)
[2020-01-28] MEDS: GABAPENTIN 300 MG CAP PO SCH ×2 (15:15→21:27)
[2020-01-28 17:00] VITALS: BP 146/55
[2020-01-28] MEDS ORDERED: MIRTAZAPINE 30 MG TAB PO SCH (18:00)
--- NOTE | 2020-01-28 19:00 | NUR ---
Opening Shift Note Assumed care of patient, awake and alert. Patient on 2L N/C oxygen saturation 98% No S/S of distress/SOB or pain. Bed locked in lowest position, side rails up X2, call light within reach. Instructed on POC and to call for assist PRN, will continue to monitor for changes Q1hr and PRN.
[2020-01-28 20:00] VITALS: BP 129/58
[2020-01-28 22:00] VITALS: BP 129/58
[2020-01-28] MEDS ORDERED: InsuLIN REG 1unit/0.01ml Soln (100units/ml) SC SCH (22:00)
[2020-01-29] MEDS: GABAPENTIN 300 MG CAP PO SCH (05:05)
[2020-01-29] MEDS: hydrOXYzine 25 MG TAB or CAP PO SCH (05:05)
[2020-01-29] MEDS: ACCU-CHEK COMFORT CURVE STRIP VI SCH (05:57)
[2020-01-29] MEDS: InsuLIN REG 1unit/0.01ml Soln (100units/ml) SC SCH (05:57)
[2020-01-29 06:00] VITALS: BP 129/58
--- NOTE | 2020-01-29 07:30 | NUR ---
Opening Shift Note Assumed care of patient, awake and alert. Respirations are even and unlabored. No S/S of distress/SOB or pain. Noted dressing to (R) groin. Dry and intact. Bed is low, locked with 2x side rails up. Call light is within reach. Instructed on POC and to call for assist PRN, will continue to monitor for changes Q1hr and PRN.
--- NOTE | 2020-01-29 08:30 | NUR ---
Discharge orders Spoke to Dr. Chacon and received discharge orders for this patient. Orders read back to verify. Will carry out.
[2020-01-29 09:00] VITALS: BP 138/61
[2020-01-29] MEDS: hydrALAZINE HCL 25 MG TAB PO SCH (09:43)
[2020-01-29] MEDS: amLODIPine BESYLATE 5 MG TAB PO SCH (09:43)
[2020-01-29] MEDS: CLOPIDOGREL BISULFATE 75 MG TAB PO SCH (09:44)
[2020-01-29] MEDS: DOCUSATE SOD 100 MG CAP PO SCH (09:46)
[2020-01-29 10:31] VITALS: BP 138/61
--- NOTE | 2020-01-29 10:48 | NUR ---
Plavix Per Dr. Chacon, patient to continue taking Plavix as prescribed. Patient already taking this medication at home. Patient was advised to continue. Will discuss discharge education/medications with daughter Adriana (poke in). Addendum: 01/29/20 at 1052 by Michelle Parra RN RN medication: plavix 75 mg po daily.
--- NOTE | 2020-01-29 11:02 | NUR ---
Spoke to Dr. Chacon In regards to patient's home medications. Per Dr. Chacon, patient to take Aspirin 81mg PO daily. Patient may take OTC Aspirin. Patient to also take Plavix 75mg PO daily. Will discuss with daughter (progressive care unit registered nurse).
--- NOTE | 2020-01-29 12:24 | NUR ---
Discharge instructions given as ordered. This nurse discussed discharge instructions with daughter Adriana. Informed daughter that the patient has a follow up appointment with Dr. Chacon on 02/19/20. Also encouraged daughter to schedule a follow up appointment with PCP. Advised daughter of patient's incision to right groin and how to care for site. Daughter verbalized understanding. Also informed daughter that Dr. Chacon wishes for patient to continue taking Plavix 75mg PO Daily and for patient to take Aspirin 81mg PO OTC. Daughter verbalized understanding. IV removed with catheter intact, pressure dressing applied. Telemetry unit returned to ICU. Patient taken to vehicle via patients personal wheelchair with all personal belongings, accompanied by staff. No distress noted at time of departure.
== END 2020-01-29 12:26 | disposition home or self-care (01) | DRG 246 ==
LOC: CATH 06:02 → TELE 06:03 → TELE-CENTR 11:30
PROVIDERS: ADMIT Internal Medicine; ATTEND Internal Medicine
PROC: 027034Z Dilation of Coronary Artery, One Artery with Drug-eluting Intraluminal Device, Percutaneous Approach (ICD-10-PCS; principal; 2020-01-28)
PROC: B211YZZ Fluoroscopy of Multiple Coronary Arteries using Other Contrast (ICD-10-PCS; 2020-01-28)
PROC: 4A023N7 Measurement of Cardiac Sampling and Pressure, Left Heart, Percutaneous Approach (ICD-10-PCS; 2020-01-28)
DX: I25.119 Atherosclerotic heart disease of native coronary artery with unspecified angina pectoris (principal); N18.6 End stage renal disease; I12.0 Hypertensive chronic kidney disease with stage 5 chronic kidney disease or end stage renal disease; E78.00 Pure hypercholesterolemia, unspecified; E78.5 Hyperlipidemia, unspecified; E11.22 Type 2 diabetes mellitus with diabetic chronic kidney disease; Z20.828 Contact with and (suspected) exposure to other viral communicable diseases; Z95.0 Presence of cardiac pacemaker; I25.2 Old myocardial infarction
CPT/HCPCS: 82962; 92928; 93454; 99152; 99153; C1874; C1887; G0378; J1815; J2250

== ENCOUNTER 2020-02-22 19:03 | Inpatient (IN) | payer MEDICARE, MEDICAID ==
[~2020-02-22] VITALS: Ht 152.4 cm; Wt 51.5 kg
[~2020-02-22 19:03] MED LIST changes: +B-COTAB10 PO; +DILT180C39 PO; +GABA100C9 PO; -GABA300C10 PO; +INSU100I51 SC; +INSU1INJ19 SC; -INSUINJ37 SC; +MIRT1TAB38 PO; -MIRT30TA PO; +PANT40TA2 PO
[2020-02-22] MEDS ORDERED: SODIUM CHLORIDE 0.9% 500 ML IV ONE (20:00)
[2020-02-22 21:41] LABS: Urine Bacteria FEW /hpf (None Seen); Urine Blood TRACE /uL (Negative); Urine WBC 18 /hpf (0 - 5)
[2020-02-22 22:06] LABS: Basophils # (auto) 0 10 ^3/uL (0-0.2); Basophils % (auto) 0.4 % (0.0-2.0); Eosinophils # (auto) 0.2 10 ^3/uL (0-0.8); Eosinophils % (auto) 3.4 % (0.0-7.0); Hematocrit 34.4 % (36.0-46.0); Hemoglobin 11.5 g/dL (12.2-16.2); Lymphocytes # (auto) 1.2 10 ^3/uL (0.4-5.4); Lymphocytes % (auto) 27.5 % (10.0-50.0); Mean Corpuscular Hemoglobin 32.9 pg (28.0-32.0); Mean Corpuscular Hgb Conc. 33.5 g/dL (32.0-36.0); Mean Corpuscular Volume 98.4 fL (80.0-100.0); Monocytes # (auto) 0.4 10 ^3/uL (0-1.3); Monocytes % (auto) 8.3 % (0.0-12.0); Neutrophils # (auto) 2.7 10 ^3/uL (1.6-8.6); Neutrophils % (auto) 60.4 % (37.0-80.0); Platelet Count (auto) 146 10^3/uL (140-450); Red Cell Distribution Width 13.9 % (11.8-14.3); White Blood Cell 4.5 10^3/uL (4.4-10.8)
[2020-02-22] MEDS ORDERED: levoFLOXacin 500 MG TAB PO ONE (22:15)
[2020-02-22 22:28] LABS: Calcium 8.6 mg/dL (8.5-10.1); Potassium 3.6 mmol/L (3.5-5.1)
[2020-02-22 22:37] LABS: Albumin 3.6 g/dL (3.4-5.0); BUN/Creatinine Ratio 9.1; Bilirubin, Total 0.6 mg/dL (0.2-1.0); Total Protein 7.2 g/dL (6.4-8.2)
[2020-02-23] MEDS ORDERED: FUROSEMIDE 20 MG/2 ML VIAL IV ONE (01:15)
[2020-02-23] MEDS ORDERED: ACETAMINOPHEN 325 MG TAB PO PRN (02:30)
[2020-02-23] MEDS ORDERED: NITROGLYCERIN 0.4 MG SL TAB SL PRN (02:30)
[2020-02-23] MEDS ORDERED: MORPHINE SULF INJ 2 MG/ML SYRINGE 1ML IV PRN (02:30)
[2020-02-23] MEDS ORDERED: DEXTROSE (50%) 50ML SYRG IV PRN (02:30)
[2020-02-23] MEDS ORDERED: ONDANSETRON HCL 4 MG/2 ML VIAL IV PRN (02:30)
[2020-02-23] MEDS: InsuLIN REG 1unit/0.01ml Soln (100units/ml) SC SCH ×4 (07:43→21:52)
[2020-02-23] MEDS: ACCU-CHEK COMFORT CURVE STRIP VI SCH ×4 (07:46→21:51)
[2020-02-23] MEDS ORDERED: dilTIAZem HCL 180MG ER CAP PO SCH (10:00)
[2020-02-23] MEDS ORDERED: hydrALAZINE HCL 25 MG TAB PO SCH (10:00)
[2020-02-23] MEDS: ASPirin 81 mg TAB PO SCH (14:59)
[2020-02-23] MEDS: amLODIPine BESYLATE 5 MG TAB PO SCH (14:59)
[2020-02-23] MEDS: CLOPIDOGREL BISULFATE 75 MG TAB PO SCH (15:00)
[2020-02-23] MEDS: PANTOPRAZOLE 40 MG TAB PO SCH (15:00)
[2020-02-23] MEDS ORDERED: hydrALAZINE HCL 25 MG TAB PO PRN (17:45)
[2020-02-23 22:25] VITALS: BP_SYST 131; BP_SYST 141; BP_DIAS 58; BP_DIAS 95
[2020-02-23] MEDS: CARVEDILOL 12.5 MG TAB PO SCH (23:05)
[2020-02-23] MEDS: SACUBITRIL-VALSARTAN 24mg/26mg TAB PO SCH (23:06)
[2020-02-23] MEDS: ATORVASTATIN 20 MG TAB PO SCH (23:06)
[2020-02-24] VITALS (7 sets, daily range): BP systolic 114–125; BP diastolic 47–79
[2020-02-24] MEDS: FUROSEMIDE 40 MG/4 ML VIAL IV SCH ×2 (06:00→18:03)
[2020-02-24] MEDS ORDERED: SODIUM CHL 0.9% 1000 ML BAG XX ONE (07:00)
[2020-02-24] MEDS: InsuLIN REG 1unit/0.01ml Soln (100units/ml) SC SCH ×4 (07:00→22:00)
[2020-02-24] MEDS: ACCU-CHEK COMFORT CURVE STRIP VI SCH ×4 (07:00→22:00)
[2020-02-24 07:12] LABS: Basophils # (auto) 0 10 ^3/uL (0-0.2); Basophils % (auto) 0.5 % (0.0-2.0); Eosinophils # (auto) 0.2 10 ^3/uL (0-0.8); Eosinophils % (auto) 3.4 % (0.0-7.0); Hematocrit 30.3 % (36.0-46.0); Hemoglobin 10.2 g/dL (12.2-16.2); Lymphocytes # (auto) 1.4 10 ^3/uL (0.4-5.4); Mean Corpuscular Hemoglobin 32.7 pg (28.0-32.0); Mean Corpuscular Hgb Conc. 33.6 g/dL (32.0-36.0); Mean Corpuscular Volume 97.4 fL (80.0-100.0); Monocytes # (auto) 0.3 10 ^3/uL (0-1.3); Monocytes % (auto) 7.6 % (0.0-12.0); Neutrophils # (auto) 2.5 10 ^3/uL (1.6-8.6); Neutrophils % (auto) 56.5 % (37.0-80.0); Nucleated Red Blood Cells % 0.2 %; Platelet Count (auto) 121 10^3/uL (140-450); Red Blood Cells 3.11 10^6/uL (4.0-5.20); Red Cell Distribution Width 13.8 % (11.8-14.3); White Blood Cell 4.4 10^3/uL (4.4-10.8)
[2020-02-24 07:28] LABS: Potassium 3.9 mmol/L (3.5-5.1)
[2020-02-24 07:33] LABS: Albumin 3.2 g/dL (3.4-5.0); BUN/Creatinine Ratio 9.3; Calcium 8.4 mg/dL (8.5-10.1)
[2020-02-24 07:46] LABS: Bilirubin, Total 0.4 mg/dL (0.2-1.0); Total Protein 6.4 g/dL (6.4-8.2)
[2020-02-24] MEDS: CARVEDILOL 12.5 MG TAB PO SCH ×2 (10:00→22:50)
[2020-02-24] MEDS: ASPirin 81 mg TAB PO SCH (10:27)
[2020-02-24] MEDS: CLOPIDOGREL BISULFATE 75 MG TAB PO SCH (10:27)
[2020-02-24] MEDS: SACUBITRIL-VALSARTAN 24mg/26mg TAB PO SCH ×2 (10:27→22:50)
[2020-02-24] MEDS: PANTOPRAZOLE 40 MG TAB PO SCH (10:28)
[2020-02-24] MEDS: amLODIPine BESYLATE 5 MG TAB PO SCH (10:29)
[2020-02-24] MEDS: ATORVASTATIN 20 MG TAB PO SCH (22:49)
[2020-02-25] MEDS ORDERED: levoFLOXacin 250MG 50 ML IV SCH (01:30)
[2020-02-25 05:00] VITALS: BP 121/46
[2020-02-25] MEDS: FUROSEMIDE 40 MG/4 ML VIAL IV SCH (06:26)
[2020-02-25] MEDS: ACCU-CHEK COMFORT CURVE STRIP VI SCH (07:00)
[2020-02-25] MEDS: InsuLIN REG 1unit/0.01ml Soln (100units/ml) SC SCH (07:00)
[2020-02-25 09:00] VITALS: BP 99/58
[2020-02-25] MEDS: SACUBITRIL-VALSARTAN 24mg/26mg TAB PO SCH (09:08)
[2020-02-25] MEDS: CARVEDILOL 12.5 MG TAB PO SCH (09:08)
[2020-02-25] MEDS: CLOPIDOGREL BISULFATE 75 MG TAB PO SCH (09:08)
[2020-02-25] MEDS: PANTOPRAZOLE 40 MG TAB PO SCH (09:08)
[2020-02-25] MEDS: ASPirin 81 mg TAB PO SCH (09:08)
[2020-02-25] MEDS: amLODIPine BESYLATE 5 MG TAB PO SCH (09:09)
[2020-02-25 10:23] VITALS: BP 114/47
[2020-02-25] MEDS ORDERED: LACTULOSE 20Gm/30ML SOLN PO ONE (10:30)
== END 2020-02-25 11:10 | disposition home or self-care (01) | DRG 280 ==
LOC: EDBD 19:03 → EDUNIT# 19:03 → ER 19:03 → TELE 19:04 → TELE-CENTR 02-23 22:21
PROVIDERS: ADMIT Nurse Practitioner; ATTEND Family Medicine
PROC: 5A1D70Z Performance of Urinary Filtration, Intermittent, Less than 6 Hours Per Day (ICD-10-PCS; principal; 2020-02-24)
DX: I13.2 Hypertensive heart and chronic kidney disease with heart failure and with stage 5 chronic kidney disease, or end stage renal disease (principal); N18.6 End stage renal disease; I21.A1 Myocardial infarction type 2; I50.43 Acute on chronic combined systolic (congestive) and diastolic (congestive) heart failure; I16.1 Hypertensive emergency; N39.0 Urinary tract infection, site not specified; R06.03 Acute respiratory distress; Z99.2 Dependence on renal dialysis; I25.10 Atherosclerotic heart disease of native coronary artery without angina pectoris; F03.90 Unspecified dementia, unspecified severity, without behavioral disturbance, psychotic disturbance, mood disturbance, and anxiety; E11.22 Type 2 diabetes mellitus with diabetic chronic kidney disease; E78.00 Pure hypercholesterolemia, unspecified; Z20.828 Contact with and (suspected) exposure to other viral communicable diseases; Z79.4 Long term (current) use of insulin; Z83.3 Family history of diabetes mellitus; Z86.73 Personal history of transient ischemic attack (TIA), and cerebral infarction without residual deficits; Z95.0 Presence of cardiac pacemaker; Z95.5 Presence of coronary angioplasty implant and graft; D63.1 Anemia in chronic kidney disease; Z88.0 Allergy status to penicillin
CPT/HCPCS: 36415; 71045; 80053; 81001; 82962; 83880; 84484; 85025; 87081; 87426; 90935; 93005; 93306; 96374; G0378; J1642; J1815

== ENCOUNTER 2020-08-12 13:13 | Inpatient (IN) | payer MEDICARE, MEDICAID ==
[~2020-08-12] VITALS: Ht 152.4 cm; Wt 56.6 kg
[~2020-08-12 13:13] MED LIST changes: -DOCU250C3 PO; +DOCU250C4 PO; -HYDR-2691 PO; +HYDR25TA87 PO
[2020-08-12] MEDS ORDERED: SODIUM CHLORIDE 0.9% 1,000 ML IV ONE (14:30)
[2020-08-12 15:17] LABS: Basophils # (auto) 0 10 ^3/uL (0-0.2); Basophils % (auto) 0.4 % (0.0-2.0); Eosinophils # (auto) 0.1 10 ^3/uL (0-0.8); Eosinophils % (auto) 2.7 % (0.0-7.0); Hemoglobin 11.8 g/dL (12.2-16.2); Lymphocytes # (auto) 1.6 10 ^3/uL (0.4-5.4); Lymphocytes % (auto) 33.8 % (10.0-50.0); Mean Corpuscular Hgb Conc. 34.7 g/dL (32.0-36.0); Monocytes # (auto) 0.5 10 ^3/uL (0-1.3); Monocytes % (auto) 9.5 % (0.0-12.0); Neutrophils # (auto) 2.6 10 ^3/uL (1.6-8.6); Neutrophils % (auto) 53.6 % (37.0-80.0); Nucleated Red Blood Cells % 0.2 %; Platelet Count (auto) 123 10^3/uL (140-450); Red Blood Cells 3.47 10^6/uL (4.0-5.20); Red Cell Distribution Width 14.2 % (11.8-14.3); White Blood Cell 4.8 10^3/uL (4.4-10.8)
[2020-08-12 15:34] LABS: Albumin 3.2 g/dL (3.4-5.0); Calcium 8.4 mg/dL (8.5-10.1); Magnesium 2.7 mg/dL (1.6-2.6); Potassium 3.7 mmol/L (3.5-5.1)
[2020-08-12 15:37] LABS: BUN/Creatinine Ratio 8.9; Bilirubin, Total 0.7 mg/dL (0.2-1.0); Total Protein 6.9 g/dL (6.4-8.2)
[2020-08-12 17:20] LABS: Urine Bacteria FEW /hpf (None Seen); Urine Blood 1+ /uL (Negative); Urine Specific Gravity 1.006 (1.001-1.035); Urine WBC 2 /hpf (0 - 5)
[2020-08-12] MEDS ORDERED: DEXTROSE (50%) 50ML SYRG IV PRN ×2 (21:15→23:00)
[2020-08-12] MEDS ORDERED: ONDANSETRON HCL 4 MG/2 ML VIAL IV PRN ×2 (21:15→23:00)
[2020-08-12] MEDS ORDERED: ACETAMINOPHEN 325 MG TAB PO PRN ×2 (21:15→23:00)
[2020-08-12] MEDS ORDERED: FLEET ENEMA(ADULT) 135 ML PR ONE (21:15)
[2020-08-12] MEDS ORDERED: DOCUSATE SOD 100 MG CAP PO SCH (22:00)
[2020-08-12] MEDS ORDERED: TEMAZEPAM 15 MG CAP PO PRN ×2 (22:00→23:00)
[2020-08-12] MEDS ORDERED: hydrALAZINE HCL 25 MG TAB PO SCH (22:00)
[2020-08-12] MEDS ORDERED: ATORVASTATIN 20 MG TAB PO SCH (22:00)
[2020-08-12] MEDS ORDERED: InsuLIN REG 1unit/0.01ml Soln (100units/ml) SC SCH (22:00)
[2020-08-12] MEDS ORDERED: ACCU-CHEK COMFORT CURVE STRIP VI SCH (22:00)
[2020-08-12 22:09] VITALS: BP 143/72
[2020-08-12] MEDS: InsuLIN REG 1unit/0.01ml Soln (100units/ml) SC SCH (23:00)
[2020-08-12] MEDS ORDERED: ASPI-231 PO (23:23)
[2020-08-12] MEDS ORDERED: NITR0.4S29 SL (23:23)
[2020-08-13] MEDS ORDERED: FUROSEMIDE 40 MG/4 ML VIAL IV ONE (00:45)
[2020-08-13] MEDS ORDERED: FLEET ENEMA(ADULT) 135 ML PR ONE (00:45)
[2020-08-13] MEDS: hydrALAZINE HCL 25 MG TAB PO SCH ×3 (00:59→21:28)
[2020-08-13] MEDS: DOCUSATE SOD 100 MG CAP PO SCH ×3 (00:59→21:28)
[2020-08-13] MEDS: ATORVASTATIN 20 MG TAB PO SCH ×2 (01:00→21:29)
[2020-08-13] MEDS: ACCU-CHEK COMFORT CURVE STRIP VI SCH ×5 (01:32→21:29)
[2020-08-13 05:00] VITALS: BP 155/76
[2020-08-13] MEDS: InsuLIN REG 1unit/0.01ml Soln (100units/ml) SC SCH ×4 (06:41→21:29)
[2020-08-13 09:00] VITALS: BP 137/76
[2020-08-13] MEDS: amLODIPine BESYLATE 5 MG TAB PO SCH (09:34)
[2020-08-13] MEDS: PANTOPRAZOLE 40 MG TAB PO SCH (09:35)
[2020-08-13] MEDS: CLOPIDOGREL BISULFATE 75 MG TAB PO SCH (09:35)
[2020-08-13] MEDS: dilTIAZem HCL 180MG ER CAP PO SCH (09:36)
[2020-08-13] MEDS ORDERED: PANTOPRAZOLE 40 MG TAB PO SCH (10:00)
[2020-08-13] MEDS ORDERED: amLODIPine BESYLATE 5 MG TAB PO SCH (10:00)
[2020-08-13] MEDS ORDERED: CLOPIDOGREL BISULFATE 75 MG TAB PO SCH (10:00)
[2020-08-13] MEDS ORDERED: dilTIAZem HCL 180MG ER CAP PO SCH (10:00)
[2020-08-13 13:00] VITALS: BP 126/60
[2020-08-13] MEDS ORDERED: LACTULOSE 20Gm/30ML SOLN PO PRN (15:00)
[2020-08-13 17:00] VITALS: BP 120/50
[2020-08-13] MEDS: Nepro With Carbsteady ButterPecan 8oz Carton PO SCH (18:00)
[2020-08-13 21:53] VITALS: BP 139/69
[2020-08-13] MEDS: SUCRALFATE 1 GM/10 ML ORAL SUSP PO SCH (21:53)
[2020-08-14 05:00] VITALS: BP 124/59
[2020-08-14 06:07] LABS: Basophils # (auto) 0 10 ^3/uL (0-0.2); Basophils % (auto) 0.3 % (0.0-2.0); Eosinophils # (auto) 0.1 10 ^3/uL (0-0.8); Eosinophils % (auto) 2.7 % (0.0-7.0); Hematocrit 29.8 % (36.0-46.0); Hemoglobin 10.6 g/dL (12.2-16.2); Lymphocytes # (auto) 1.2 10 ^3/uL (0.4-5.4); Monocytes # (auto) 0.5 10 ^3/uL (0-1.3); Neutrophils # (auto) 3.5 10 ^3/uL (1.6-8.6); Nucleated Red Blood Cells % 0.1 %
[2020-08-14 06:10] LABS: Lymphocytes % (auto) 22.5 % (10.0-50.0); Mean Corpuscular Hemoglobin 34.6 pg (28.0-32.0); Mean Corpuscular Hgb Conc. 35.4 g/dL (32.0-36.0); Mean Corpuscular Volume 97.9 fL (80.0-100.0); Neutrophils % (auto) 65.5 % (37.0-80.0); Platelet Count (auto) 115 10^3/uL (140-450); Red Blood Cells 3.05 10^6/uL (4.0-5.20); Red Cell Distribution Width 13.9 % (11.8-14.3); White Blood Cell 5.3 10^3/uL (4.4-10.8)
[2020-08-14 06:25] LABS: Potassium 3.9 mmol/L (3.5-5.1)
[2020-08-14] MEDS: SUCRALFATE 1 GM/10 ML ORAL SUSP PO SCH ×4 (06:32→21:30)
[2020-08-14] MEDS: InsuLIN REG 1unit/0.01ml Soln (100units/ml) SC SCH ×4 (06:32→21:37)
[2020-08-14] MEDS: ACCU-CHEK COMFORT CURVE STRIP VI SCH ×4 (06:32→21:32)
[2020-08-14 06:42] LABS: Albumin 2.9 g/dL (3.4-5.0); BUN/Creatinine Ratio 8.8; Bilirubin, Total 0.7 mg/dL (0.2-1.0); Calcium 8.3 mg/dL (8.5-10.1); Total Protein 6.3 g/dL (6.4-8.2)
[2020-08-14 09:00] VITALS: BP 134/44
[2020-08-14] MEDS: dilTIAZem HCL 180MG ER CAP PO SCH (09:02)
[2020-08-14] MEDS: Nepro With Carbsteady ButterPecan 8oz Carton PO SCH ×2 (09:02→18:08)
[2020-08-14] MEDS: hydrALAZINE HCL 25 MG TAB PO SCH ×2 (09:02→21:32)
[2020-08-14] MEDS: DOCUSATE SOD 100 MG CAP PO SCH ×2 (09:03→21:31)
[2020-08-14] MEDS: PANTOPRAZOLE 40 MG TAB PO SCH (09:03)
[2020-08-14] MEDS: amLODIPine BESYLATE 5 MG TAB PO SCH (09:03)
[2020-08-14] MEDS: CLOPIDOGREL BISULFATE 75 MG TAB PO SCH (09:03)
[2020-08-14 12:40] VITALS: BP 114/39
[2020-08-14 17:00] VITALS: BP 145/40
[2020-08-14] MEDS: ATORVASTATIN 20 MG TAB PO SCH (21:31)
[2020-08-14 21:38] VITALS: BP 117/87
[2020-08-15 04:59] VITALS: BP 144/54
[2020-08-15] MEDS: InsuLIN REG 1unit/0.01ml Soln (100units/ml) SC SCH ×3 (06:08→17:00)
[2020-08-15] MEDS: ACCU-CHEK COMFORT CURVE STRIP VI SCH ×3 (06:10→17:08)
[2020-08-15] MEDS: SUCRALFATE 1 GM/10 ML ORAL SUSP PO SCH ×3 (06:13→17:08)
[2020-08-15 06:45] LABS: Basophils # (auto) 0 10 ^3/uL (0-0.2); Basophils % (auto) 0.2 % (0.0-2.0); Eosinophils # (auto) 0.2 10 ^3/uL (0-0.8); Eosinophils % (auto) 2.4 % (0.0-7.0); Hematocrit 31.5 % (36.0-46.0); Hemoglobin 10.7 g/dL (12.2-16.2); Lymphocytes # (auto) 1.4 10 ^3/uL (0.4-5.4); Lymphocytes % (auto) 22.4 % (10.0-50.0); Mean Corpuscular Hemoglobin 33.8 pg (28.0-32.0); Mean Corpuscular Hgb Conc. 33.9 g/dL (32.0-36.0); Mean Corpuscular Volume 99.8 fL (80.0-100.0); Monocytes # (auto) 0.5 10 ^3/uL (0-1.3); Monocytes % (auto) 8.2 % (0.0-12.0); Neutrophils # (auto) 4.3 10 ^3/uL (1.6-8.6); Neutrophils % (auto) 66.8 % (37.0-80.0); Platelet Count (auto) 119 10^3/uL (140-450); Red Blood Cells 3.16 10^6/uL (4.0-5.20); Red Cell Distribution Width 14.3 % (11.8-14.3); White Blood Cell 6.4 10^3/uL (4.4-10.8)
[2020-08-15] MEDS ORDERED: SODIUM CHL 0.9% 1000 ML BAG XX ONE (07:00)
[2020-08-15 07:11] LABS: Potassium 4.8 mmol/L (3.5-5.1)
[2020-08-15 07:22] LABS: BUN/Creatinine Ratio 8.5; Bilirubin, Total 0.8 mg/dL (0.2-1.0); Calcium 8.3 mg/dL (8.5-10.1); Total Protein 6.6 g/dL (6.4-8.2)
[2020-08-15 08:00] VITALS: BP 130/58
[2020-08-15] MEDS: Nepro With Carbsteady ButterPecan 8oz Carton PO SCH ×2 (08:59→18:08)
[2020-08-15 09:00] VITALS: BP 130/58
[2020-08-15] MEDS: hydrALAZINE HCL 25 MG TAB PO SCH (10:00)
[2020-08-15] MEDS: dilTIAZem HCL 180MG ER CAP PO SCH (10:00)
[2020-08-15] MEDS: amLODIPine BESYLATE 5 MG TAB PO SCH (10:00)
[2020-08-15] MEDS: CLOPIDOGREL BISULFATE 75 MG TAB PO SCH (12:02)
[2020-08-15] MEDS: PANTOPRAZOLE 40 MG TAB PO SCH (12:02)
[2020-08-15] MEDS: DOCUSATE SOD 100 MG CAP PO SCH (12:03)
[2020-08-15 12:34] VITALS: BP 146/66
[2020-08-15] MEDS ORDERED: SODIUM CHLORIDE LOCK 10 ML ONE (13:30)
[2020-08-15] MEDS ORDERED: LIDOCAINE VISCOUS 2% 15ML UD ONE (13:30)
[2020-08-15] MEDS ORDERED: MIDAZOLAM HCL 5 MG/ML-1ML VIAL ONE (13:31)
[2020-08-15] MEDS ORDERED: diphenhdrAMINE HCL 50 MG/1 ML VL ONE (13:31)
[2020-08-15] MEDS ORDERED: fentaNYL CITRATE 100 MCG/2 ML VL ONE (13:31)
[2020-08-15 18:15] VITALS: BP 146/66
== END 2020-08-15 20:03 | disposition home or self-care (01) | DRG 438 ==
LOC: ER 13:13 → CENTRAL 21:11 → ER 22:08 → TELE-CENTR 08-13 16:35
PROVIDERS: ADMIT Nurse Practitioner; ATTEND Internal Medicine
PROC: 5A1D70Z Performance of Urinary Filtration, Intermittent, Less than 6 Hours Per Day (ICD-10-PCS; principal; 2020-08-15)
DX: K85.90 Acute pancreatitis without necrosis or infection, unspecified (principal); N18.6 End stage renal disease; E44.0 Moderate protein-calorie malnutrition; R65.10 Systemic inflammatory response syndrome (SIRS) of non-infectious origin without acute organ dysfunction; D63.8 Anemia in other chronic diseases classified elsewhere; E11.21 Type 2 diabetes mellitus with diabetic nephropathy; K59.00 Constipation, unspecified; Z20.822 Contact with and (suspected) exposure to COVID-19; E11.22 Type 2 diabetes mellitus with diabetic chronic kidney disease; Z99.2 Dependence on renal dialysis; Z95.0 Presence of cardiac pacemaker; Z86.73 Personal history of transient ischemic attack (TIA), and cerebral infarction without residual deficits; Z88.0 Allergy status to penicillin; Z83.3 Family history of diabetes mellitus; Z68.23 Body mass index [BMI] 23.0-23.9, adult; Z90.49 Acquired absence of other specified parts of digestive tract; Z98.51 Tubal ligation status
CPT/HCPCS: 36415; 71045; 73630; 74176; 76705; 80053; 81001; 82150; 82962; 83036; 83690; 83735; 83880; 84443; 85025; 86301; 87426; 93005; 96361; 96374; G0378; J1815; J2250

== ENCOUNTER 2020-09-19 15:38 | Inpatient (IN) | payer MEDICARE, MEDICAID ==
[~2020-09-19] VITALS: Ht 157.5 cm; Wt 61.9 kg
[~2020-09-19 15:38] MED LIST changes: +ASPI1TAB20 PO; -ERGO1CAP12; +ERGO1CAP12 PO; +NITR0.4S29 SL
[2020-09-19 16:30] LABS: Basophils # (auto) 0 10 ^3/uL (0-0.2); Basophils % (auto) 0.3 % (0.0-2.0); Eosinophils # (auto) 0.2 10 ^3/uL (0-0.8); Eosinophils % (auto) 3.3 % (0.0-7.0); Hematocrit 29.5 % (36.0-46.0); Hemoglobin 10.3 g/dL (12.2-16.2); Lymphocytes # (auto) 0.7 10 ^3/uL (0.4-5.4); Lymphocytes % (auto) 14.1 % (10.0-50.0); Mean Corpuscular Hemoglobin 33.5 pg (28.0-32.0); Mean Corpuscular Hgb Conc. 34.9 g/dL (32.0-36.0); Mean Corpuscular Volume 95.7 fL (80.0-100.0); Monocytes # (auto) 0.4 10 ^3/uL (0-1.3); Monocytes % (auto) 8.8 % (0.0-12.0); Neutrophils # (auto) 3.4 10 ^3/uL (1.6-8.6); Neutrophils % (auto) 73.5 % (37.0-80.0); Red Blood Cells 3.08 10^6/uL (4.0-5.20); Red Cell Distribution Width 14.2 % (11.8-14.3); White Blood Cell 4.7 10^3/uL (4.4-10.8)
[2020-09-19 16:40] LABS: Albumin 3.2 g/dL (3.4-5.0); Calcium 8.2 mg/dL (8.5-10.1); Potassium 3.9 mmol/L (3.5-5.1)
[2020-09-19 16:54] LABS: BUN/Creatinine Ratio 12.1; Total Protein 6.7 g/dL (6.4-8.2)
[2020-09-19] MEDS ORDERED: NITROGLYCERIN 0.4 MG SL TAB SL PRN (21:15)
[2020-09-19] MEDS ORDERED: ONDANSETRON HCL 4 MG/2 ML VIAL IV PRN (21:15)
[2020-09-19] MEDS ORDERED: DEXTROSE (50%) 50ML SYRG IV PRN (21:15)
[2020-09-19] MEDS ORDERED: TEMAZEPAM 15 MG CAP PO PRN (21:15)
[2020-09-19] MEDS ORDERED: ACETAMINOPHEN 325 MG TAB PO PRN (21:15)
[2020-09-19] MEDS ORDERED: MORPHINE SULFATE INJECTION 2 MG/ML SYRG IV PRN (21:15)
[2020-09-19] MEDS: InsuLIN REG 1unit/0.01ml Soln (100units/ml) SC SCH (22:00)
[2020-09-19] MEDS: hydrALAZINE HCL 25 MG TAB PO SCH (22:00)
[2020-09-19] MEDS: ACCU-CHEK COMFORT CURVE STRIP VI SCH (22:00)
[2020-09-19] MEDS: ATORVASTATIN 20 MG TAB PO SCH (22:00)
[2020-09-19] MEDS ORDERED: MECLIZINE HCL 25 MG TAB PO PRN (23:00)
[2020-09-20] MEDS ORDERED: ENOXAPARIN SOD 100 MG/1 ML SYRINGE SC ONE (02:45)
[2020-09-20] MEDS: InsuLIN REG 1unit/0.01ml Soln (100units/ml) SC SCH ×4 (07:00→21:40)
[2020-09-20 07:50] LABS: Basophils # (auto) 0 10 ^3/uL (0-0.2); Basophils % (auto) 0.3 % (0.0-2.0); Eosinophils # (auto) 0.2 10 ^3/uL (0-0.8); Eosinophils % (auto) 3.9 % (0.0-7.0); Hematocrit 29.9 % (36.0-46.0); Hemoglobin 10.4 g/dL (12.2-16.2); Lymphocytes # (auto) 1.4 10 ^3/uL (0.4-5.4); Lymphocytes % (auto) 28.8 % (10.0-50.0); Mean Corpuscular Hemoglobin 33.7 pg (28.0-32.0); Mean Corpuscular Hgb Conc. 34.7 g/dL (32.0-36.0); Monocytes # (auto) 0.6 10 ^3/uL (0-1.3); Monocytes % (auto) 11.5 % (0.0-12.0); Neutrophils # (auto) 2.7 10 ^3/uL (1.6-8.6); Neutrophils % (auto) 55.5 % (37.0-80.0); Nucleated Red Blood Cells % 0.1 %; Red Blood Cells 3.09 10^6/uL (4.0-5.20); Red Cell Distribution Width 14.1 % (11.8-14.3); White Blood Cell 4.9 10^3/uL (4.4-10.8)
[2020-09-20 07:59] LABS: INR 1.24 (0.9-1.15); Partial Thromboplastin Time 48.9 sec (23.0-31.2)
[2020-09-20 08:02] LABS: Albumin 2.8 g/dL (3.4-5.0); Calcium 7.9 mg/dL (8.5-10.1); Potassium 3.9 mmol/L (3.5-5.1)
[2020-09-20 08:05] LABS: BUN/Creatinine Ratio 11.7; Bilirubin, Total 0.8 mg/dL (0.2-1.0); Total Protein 6.1 g/dL (6.4-8.2)
[2020-09-20] MEDS: ACCU-CHEK COMFORT CURVE STRIP VI SCH ×4 (09:23→21:40)
[2020-09-20] MEDS: PANTOPRAZOLE 40 MG/10 ML VIAL INJ IV SCH (09:56)
[2020-09-20] MEDS: hydrALAZINE HCL 25 MG TAB PO SCH ×2 (09:57→21:58)
[2020-09-20] MEDS: dilTIAZem HCL 180MG ER CAP PO SCH (09:59)
[2020-09-20] MEDS ORDERED: ASPirin 81 mg TAB PO SCH (10:00)
[2020-09-20] MEDS: CLOPIDOGREL BISULFATE 75 MG TAB PO SCH (10:00)
[2020-09-20] MEDS ORDERED: amLODIPine BESYLATE 5 MG TAB PO SCH (10:00)
[2020-09-20] MEDS ORDERED: SODIUM CHLORIDE 0.9% 500 ML IV ONE (11:30)
[2020-09-20] MEDS ORDERED: INSU1INJ19 SC (14:43)
[2020-09-20] MEDS ORDERED: INSU100I51 SC (14:43)
[2020-09-20] MEDS ORDERED: DOCU100C10 PO (15:39)
[2020-09-20 17:01] VITALS: BP 123/67
[2020-09-20] MEDS: ATORVASTATIN 20 MG TAB PO SCH (21:36)
[2020-09-20 22:00] VITALS: BP 132/55
[2020-09-21 05:00] VITALS: BP 123/53
[2020-09-21] MEDS: InsuLIN REG 1unit/0.01ml Soln (100units/ml) SC SCH ×4 (05:39→22:15)
[2020-09-21] MEDS: ACCU-CHEK COMFORT CURVE STRIP VI SCH ×4 (05:40→22:14)
[2020-09-21] MEDS ORDERED: SODIUM CHL 0.9% 1000 ML BAG XX ONE (07:00)
[2020-09-21 08:34] LABS: Basophils # (auto) 0 10 ^3/uL (0-0.2); Basophils % (auto) 0.4 % (0.0-2.0); Eosinophils # (auto) 0.2 10 ^3/uL (0-0.8); Eosinophils % (auto) 4.4 % (0.0-7.0); Hematocrit 30.2 % (36.0-46.0); Hemoglobin 10.2 g/dL (12.2-16.2); Lymphocytes # (auto) 0.9 10 ^3/uL (0.4-5.4); Lymphocytes % (auto) 19.8 % (10.0-50.0); Mean Corpuscular Hemoglobin 33.2 pg (28.0-32.0); Mean Corpuscular Hgb Conc. 33.8 g/dL (32.0-36.0); Mean Corpuscular Volume 98.2 fL (80.0-100.0); Monocytes # (auto) 0.5 10 ^3/uL (0-1.3); Monocytes % (auto) 10.1 % (0.0-12.0); Neutrophils % (auto) 65.3 % (37.0-80.0); Red Blood Cells 3.08 10^6/uL (4.0-5.20); Red Cell Distribution Width 14.4 % (11.8-14.3); White Blood Cell 4.6 10^3/uL (4.4-10.8)
[2020-09-21 08:52] LABS: Albumin 2.9 g/dL (3.4-5.0); Calcium 7.9 mg/dL (8.5-10.1); Magnesium 2.7 mg/dL (1.6-2.6); Potassium 3.9 mmol/L (3.5-5.1)
[2020-09-21 08:58] LABS: BUN/Creatinine Ratio 11.5; Bilirubin, Total 0.9 mg/dL (0.2-1.0); Total Protein 6.5 g/dL (6.4-8.2)
[2020-09-21 09:00] VITALS: BP 136/63
[2020-09-21] MEDS: dilTIAZem HCL 180MG ER CAP PO SCH (10:13)
[2020-09-21] MEDS: PANTOPRAZOLE 40 MG/10 ML VIAL INJ IV SCH (10:13)
[2020-09-21] MEDS: ASPirin 81 mg TAB PO SCH (10:13)
[2020-09-21] MEDS: hydrALAZINE HCL 25 MG TAB PO SCH ×2 (10:13→22:14)
[2020-09-21] MEDS: CLOPIDOGREL BISULFATE 75 MG TAB PO SCH (10:14)
[2020-09-21 13:00] VITALS: BP 139/70
[2020-09-21 17:00] VITALS: BP 133/59
[2020-09-21] MEDS ORDERED: EPOETIN ALFA-EPBX 4,000 UNIT/ML VIAL SC ONE (21:00)
[2020-09-21 22:00] VITALS: BP 135/67
[2020-09-21] MEDS: ATORVASTATIN 20 MG TAB PO SCH (22:14)
[2020-09-22 05:00] VITALS: BP 127/51
[2020-09-22] MEDS: ACCU-CHEK COMFORT CURVE STRIP VI SCH ×3 (06:11→16:56)
[2020-09-22] MEDS: InsuLIN REG 1unit/0.01ml Soln (100units/ml) SC SCH ×3 (06:22→16:56)
[2020-09-22 06:29] LABS: Potassium 4.4 mmol/L (3.5-5.1)
[2020-09-22 06:34] LABS: Magnesium 2.7 mg/dL (1.6-2.6)
[2020-09-22 08:30] VITALS: BP 154/66
[2020-09-22] MEDS: ASPirin 81 mg TAB PO SCH (10:13)
[2020-09-22] MEDS: PANTOPRAZOLE 40 MG/10 ML VIAL INJ IV SCH (10:13)
[2020-09-22] MEDS: hydrALAZINE HCL 25 MG TAB PO SCH (10:13)
[2020-09-22] MEDS: dilTIAZem HCL 180MG ER CAP PO SCH (10:14)
[2020-09-22] MEDS: CLOPIDOGREL BISULFATE 75 MG TAB PO SCH (10:14)
[2020-09-22 12:30] VITALS: BP 144/73
[2020-09-22 17:00] VITALS: BP 135/71
[2020-09-22] MEDS ORDERED: EPOETIN ALFA-EPBX 4,000 UNIT/ML VIAL SC ONE (21:00)
[2020-11-18] MEDS ORDERED: HYDR50TA15 PO (16:39)
[2020-11-18] MEDS ORDERED: RANO1000 PO (16:39)
[2020-11-18] MEDS ORDERED: MEGE1SUS5 PO (16:39)
== END 2020-09-22 18:00 | disposition home health service (06) | DRG 280 ==
LOC: EDBD 15:38 → ER 15:38 → EDUNIT# 15:38 → TELE 21:08 → TELE-EAST 09-20 16:00
PROVIDERS: ADMIT Nurse Practitioner; ATTEND Internal Medicine
PROC: 5A1D70Z Performance of Urinary Filtration, Intermittent, Less than 6 Hours Per Day (ICD-10-PCS; principal; 2020-09-22)
DX: I13.2 Hypertensive heart and chronic kidney disease with heart failure and with stage 5 chronic kidney disease, or end stage renal disease (principal); N18.6 End stage renal disease; I21.A1 Myocardial infarction type 2; I50.43 Acute on chronic combined systolic (congestive) and diastolic (congestive) heart failure; E44.0 Moderate protein-calorie malnutrition; R65.10 Systemic inflammatory response syndrome (SIRS) of non-infectious origin without acute organ dysfunction; E11.22 Type 2 diabetes mellitus with diabetic chronic kidney disease; I07.1 Rheumatic tricuspid insufficiency; Z20.822 Contact with and (suspected) exposure to COVID-19; I25.10 Atherosclerotic heart disease of native coronary artery without angina pectoris; I27.20 Pulmonary hypertension, unspecified; D63.8 Anemia in other chronic diseases classified elsewhere; Z68.25 Body mass index [BMI] 25.0-25.9, adult; Z88.0 Allergy status to penicillin; I25.2 Old myocardial infarction; Z83.3 Family history of diabetes mellitus; Z86.73 Personal history of transient ischemic attack (TIA), and cerebral infarction without residual deficits; Z95.0 Presence of cardiac pacemaker; Z95.5 Presence of coronary angioplasty implant and graft; Z90.49 Acquired absence of other specified parts of digestive tract
CPT/HCPCS: 36415; 70450; 71045; 76705; 80053; 80061; 82306; 82962; 83036; 83735; 83880; 84132; 84443; 84484; 85025; 85610; 85730; 87426; 90935; 93005; 93306; 93886; 96361; 96372; 96374; 97110; 97116; 97530; C9113; G0378; J1815; J2405

== ENCOUNTER 2020-09-26 15:46 | Inpatient (IN) | payer MEDICARE, MEDICAID ==
[~2020-09-26] VITALS: Ht 152.4 cm; Wt 65.6 kg
[~2020-09-26 15:46] MED LIST changes: -AML5T PO; +DOCU100C10 PO; -DOCU250C4 PO
[2020-09-26 16:39] LABS: Basophils # (auto) 0 10 ^3/uL (0-0.2); Eosinophils # (auto) 0.1 10 ^3/uL (0-0.8); Hemoglobin 9.7 g/dL (12.2-16.2); Mean Corpuscular Hgb Conc. 35.6 g/dL (32.0-36.0); Monocytes # (auto) 0.5 10 ^3/uL (0-1.3); Red Blood Cells 2.82 10^6/uL (4.0-5.20)
[2020-09-26 16:41] LABS: Basophils % (auto) 0.3 % (0.0-2.0); Hematocrit 27.2 % (36.0-46.0); Lymphocytes # (auto) 0.7 10 ^3/uL (0.4-5.4); Lymphocytes % (auto) 11.3 % (10.0-50.0); Mean Corpuscular Hemoglobin 34.3 pg (28.0-32.0); Mean Corpuscular Volume 96.3 fL (80.0-100.0); Monocytes % (auto) 7.2 % (0.0-12.0); Neutrophils # (auto) 5.2 10 ^3/uL (1.6-8.6); Neutrophils % (auto) 80.2 % (37.0-80.0); White Blood Cell 6.5 10^3/uL (4.4-10.8)
[2020-09-26 16:55] LABS: Calcium 8.2 mg/dL (8.5-10.1); Potassium 3.6 mmol/L (3.5-5.1)
[2020-09-26 16:57] LABS: BUN/Creatinine Ratio 10.4
[2020-09-26 17:02] LABS: Total Protein 6.7 g/dL (6.4-8.2)
[2020-09-26] MEDS ORDERED: BUSPIRONE HCL 7.5 MG PO PRN (19:00)
[2020-09-26] MEDS ORDERED: DEXTROSE (50%) 50ML SYRG IV PRN (19:00)
[2020-09-26] MEDS ORDERED: MORPHINE SULFATE INJECTION 2 MG/ML SYRG IV PRN (19:00)
[2020-09-26] MEDS ORDERED: NITROGLYCERIN 0.4 MG SL TAB SL PRN (19:00)
[2020-09-26] MEDS: ACCU-CHEK COMFORT CURVE STRIP VI SCH (22:00)
[2020-09-26] MEDS: InsuLIN REG 1unit/0.01ml Soln (100units/ml) SC SCH (22:00)
[2020-09-26] MEDS: DOCUSATE SOD 100 MG CAP PO SCH (23:10)
[2020-09-26] MEDS: GABAPENTIN 100 MG CAP PO SCH (23:11)
[2020-09-26] MEDS: ATORVASTATIN 20 MG TAB PO SCH (23:11)
[2020-09-27 05:24] VITALS: BP 100/32
[2020-09-27] MEDS: InsuLIN REG 1unit/0.01ml Soln (100units/ml) SC SCH ×4 (06:21→21:57)
[2020-09-27] MEDS: GABAPENTIN 100 MG CAP PO SCH ×3 (06:21→21:35)
[2020-09-27] MEDS: ACCU-CHEK COMFORT CURVE STRIP VI SCH ×4 (06:21→21:36)
[2020-09-27] MEDS: CLOPIDOGREL BISULFATE 75 MG TAB PO SCH (09:55)
[2020-09-27] MEDS: ASPirin-EC 81 mg tab PO SCH (09:56)
[2020-09-27] MEDS: DOCUSATE SOD 100 MG CAP PO SCH ×2 (09:56→21:35)
[2020-09-27] MEDS: dilTIAZem HCL 180MG ER CAP PO SCH (09:56)
[2020-09-27] MEDS ORDERED: PANTOPRAZOLE 40 MG TAB PO SCH (10:00)
[2020-09-27] MEDS ORDERED: HYOSCYAMINE SULF 0.125 MG ODT TAB PO PRN (11:30)
[2020-09-27] MEDS: SUCRALFATE 1 GM/10 ML ORAL SUSP PO SCH ×3 (12:16→21:35)
[2020-09-27] MEDS ORDERED: OMNIPAQUE ORAL SOLN 500ml 12mg/ml PO ONE (12:53)
[2020-09-27 13:00] VITALS: BP 114/49
[2020-09-27 17:24] VITALS: BP 125/54
[2020-09-27] MEDS ORDERED: IOHEXOL 300 MG/ML 100ML BOTTLE IJ ONE (18:04)
[2020-09-27] MEDS: ATORVASTATIN 20 MG TAB PO SCH (21:35)
[2020-09-27] MEDS: PANTOPRAZOLE 40 MG TAB PO SCH (21:36)
[2020-09-27 22:00] VITALS: BP 124/73
[2020-09-28 05:00] VITALS: BP_SYST 113; BP_SYST 123; BP_SYST 124; BP_DIAS 49; BP_DIAS 57; BP_DIAS 62
[2020-09-28] MEDS: GABAPENTIN 100 MG CAP PO SCH ×2 (06:11→16:11)
[2020-09-28] MEDS: ACCU-CHEK COMFORT CURVE STRIP VI SCH ×3 (06:11→17:46)
[2020-09-28] MEDS: InsuLIN REG 1unit/0.01ml Soln (100units/ml) SC SCH ×3 (06:11→17:47)
[2020-09-28] MEDS: SUCRALFATE 1 GM/10 ML ORAL SUSP PO SCH ×3 (06:11→17:20)
[2020-09-28] MEDS ORDERED: SODIUM CHL 0.9% 1000 ML BAG XX ONE (07:00)
[2020-09-28 07:33] LABS: Calcium 8.1 mg/dL (8.5-10.1); Magnesium 2.7 mg/dL (1.6-2.6); Potassium 4.4 mmol/L (3.5-5.1)
[2020-09-28 07:35] LABS: BUN/Creatinine Ratio 10.5
[2020-09-28 09:00] VITALS: BP 131/58
[2020-09-28 09:08] VITALS: BP 131/52
[2020-09-28] MEDS: dilTIAZem HCL 180MG ER CAP PO SCH (10:00)
[2020-09-28] MEDS: ASPirin-EC 81 mg tab PO SCH (10:45)
[2020-09-28] MEDS: CLOPIDOGREL BISULFATE 75 MG TAB PO SCH (10:45)
[2020-09-28] MEDS: PANTOPRAZOLE 40 MG TAB PO SCH (10:45)
[2020-09-28] MEDS: DOCUSATE SOD 100 MG CAP PO SCH (10:45)
[2020-09-28] MEDS ORDERED: SUCR1TAB22 PO (11:02)
[2020-09-28 13:00] VITALS: BP_SYST 126; BP_SYST 127; BP_SYST 139; BP_DIAS 52; BP_DIAS 55; BP_DIAS 57
[2020-09-28 16:52] VITALS: BP 142/55
[2020-09-28 17:29] VITALS: BP 142/55
[2020-09-28] MEDS ORDERED: EPOETIN ALFA-EPBX 4,000 UNIT/ML VIAL SC ONE (21:00)
[2020-11-18] MEDS ORDERED: RANO1000 PO (16:39)
[2020-11-18] MEDS ORDERED: HYDR50TA15 PO (16:39)
[2020-11-18] MEDS ORDERED: MEGE1SUS5 PO (16:39)
== END 2020-09-28 18:50 | disposition home health service (06) | DRG 312 ==
LOC: EDBD 15:46 → ER 15:46 → TELE 18:46 → TELE-WESTW 22:40
PROVIDERS: ADMIT Nurse Practitioner Acute Care; ATTEND Internal Medicine
DX: R55 Syncope and collapse (principal); N18.6 End stage renal disease; E44.0 Moderate protein-calorie malnutrition; E87.1 Hypo-osmolality and hyponatremia; K92.2 Gastrointestinal hemorrhage, unspecified; I69.351 Hemiplegia and hemiparesis following cerebral infarction affecting right dominant side; I13.2 Hypertensive heart and chronic kidney disease with heart failure and with stage 5 chronic kidney disease, or end stage renal disease; I50.42 Chronic combined systolic (congestive) and diastolic (congestive) heart failure; Z20.822 Contact with and (suspected) exposure to COVID-19; E78.5 Hyperlipidemia, unspecified; I25.10 Atherosclerotic heart disease of native coronary artery without angina pectoris; I65.22 Occlusion and stenosis of left carotid artery; D63.1 Anemia in chronic kidney disease; E11.22 Type 2 diabetes mellitus with diabetic chronic kidney disease; G47.00 Insomnia, unspecified; F41.9 Anxiety disorder, unspecified; Z79.82 Long term (current) use of aspirin; Z79.899 Other long term (current) drug therapy; Z79.02 Long term (current) use of antithrombotics/antiplatelets; Z79.4 Long term (current) use of insulin; Z99.2 Dependence on renal dialysis; Z83.3 Family history of diabetes mellitus; Z95.0 Presence of cardiac pacemaker; Z90.49 Acquired absence of other specified parts of digestive tract; Z98.51 Tubal ligation status; Z88.0 Allergy status to penicillin; Z95.5 Presence of coronary angioplasty implant and graft; Z82.49 Family history of ischemic heart disease and other diseases of the circulatory system
CPT/HCPCS: 36415; 70450; 71045; 74178; 80048; 80053; 82962; 83735; 83880; 84484; 85025; 85049; 87081; 87426; 90935; 93005; 95819; 96372; G0378; J1815

== ENCOUNTER 2020-10-03 12:14 | Emergency (ER) | payer MEDICARE, MEDICAID ==
[~2020-10-03] VITALS: Ht 157.5 cm; Wt 51.7 kg
[~2020-10-03 12:14] MED LIST changes: +ASPI-231 PO; -ASPI1TAB20 PO; -HYDR25TA87 PO; +SUCR1TAB22 PO
[2020-10-03] MEDS ORDERED: LORazepam 2MG/ML-1ML VIAL IV ONE (12:45)
[2020-10-03 13:31] LABS: Basophils # (auto) 0 10 ^3/uL (0-0.2); Eosinophils # (auto) 0.1 10 ^3/uL (0-0.8); Hematocrit 26.8 % (36.0-46.0); Hemoglobin 9.4 g/dL (12.2-16.2); Lymphocytes # (auto) 0.7 10 ^3/uL (0.4-5.4); Monocytes # (auto) 0.4 10 ^3/uL (0-1.3); Red Blood Cells 2.74 10^6/uL (4.0-5.20)
[2020-10-03 13:32] LABS: Basophils % (auto) 0.2 % (0.0-2.0); Eosinophils % (auto) 1.8 % (0.0-7.0); Lymphocytes % (auto) 11.4 % (10.0-50.0); Mean Corpuscular Hemoglobin 34.3 pg (28.0-32.0); Mean Corpuscular Volume 97.8 fL (80.0-100.0); Monocytes % (auto) 6.4 % (0.0-12.0); Neutrophils # (auto) 4.9 10 ^3/uL (1.6-8.6); Neutrophils % (auto) 80.2 % (37.0-80.0); Platelet Count (auto) 108 10^3/uL (140-450); White Blood Cell 6.1 10^3/uL (4.4-10.8)
[2020-10-03 13:49] LABS: Albumin 3.2 g/dL (3.4-5.0); INR 1.21 (0.9-1.15); Potassium 3.6 mmol/L (3.5-5.1)
[2020-10-03 13:54] LABS: BUN/Creatinine Ratio 9.7; Bilirubin, Total 0.8 mg/dL (0.2-1.0); Total Protein 6.7 g/dL (6.4-8.2)
[2020-10-03 16:00] VITALS: BP 143/32
== END 2020-10-03 16:05 | disposition home or self-care (01) ==
LOC: EDBD 12:14 → ER 12:14
DX: R55 Syncope and collapse (principal); I12.0 Hypertensive chronic kidney disease with stage 5 chronic kidney disease or end stage renal disease; E11.22 Type 2 diabetes mellitus with diabetic chronic kidney disease; N18.6 End stage renal disease; Z99.2 Dependence on renal dialysis; Z79.4 Long term (current) use of insulin; Z79.899 Other long term (current) drug therapy; Z88.0 Allergy status to penicillin; Z98.51 Tubal ligation status; Z90.49 Acquired absence of other specified parts of digestive tract
CPT/HCPCS: 36415; 70450; 71045; 80053; 84484; 85025; 85049; 85610; 85730; 93005; 96374; 99285; J2060

== ENCOUNTER 2020-11-22 07:51 | Day surgery (SDC) | payer MEDICARE, MEDICAID ==
[2020-11-18 11:47] LABS: Basophils # (auto) 0 10 ^3/uL (0-0.2); Basophils % (auto) 0.6 % (0.0-2.0); Eosinophils # (auto) 0.2 10 ^3/uL (0-0.8); Eosinophils % (auto) 3.2 % (0.0-7.0); Hematocrit 32.5 % (36.0-46.0); Hemoglobin 10.7 g/dL (12.2-16.2); Lymphocytes # (auto) 1.2 10 ^3/uL (0.4-5.4); Lymphocytes % (auto) 24.5 % (10.0-50.0); Mean Corpuscular Hemoglobin 32.9 pg (28.0-32.0); Mean Corpuscular Hgb Conc. 32.9 g/dL (32.0-36.0); Monocytes # (auto) 0.3 10 ^3/uL (0-1.3); Monocytes % (auto) 6.5 % (0.0-12.0); Neutrophils # (auto) 3.2 10 ^3/uL (1.6-8.6); Neutrophils % (auto) 65.2 % (37.0-80.0); Nucleated Red Blood Cells % 0.1 %; Red Blood Cells 3.25 10^6/uL (4.0-5.20); Red Cell Distribution Width 15.5 % (11.8-14.3)
[2020-11-18 12:57] LABS: Albumin 3.2 g/dL (3.4-5.0); Calcium 8.6 mg/dL (8.5-10.1); Potassium 4.2 mmol/L (3.5-5.1)
[2020-11-18 13:01] LABS: BUN/Creatinine Ratio 7.5; Bilirubin, Total 0.8 mg/dL (0.2-1.0); Total Protein 7.3 g/dL (6.4-8.2)
[~2020-11-22] VITALS: Ht 152.4 cm; Wt 52.2 kg
[~2020-11-22 07:51] MED LIST changes: +HYDR50TA15 PO; +MEGE1SUS5 PO; +RANO1000 PO
[2020-11-22] MEDS ORDERED: LIDOCAINE VISCOUS 2% 15ML UD ONE (09:07)
[2020-11-22] MEDS ORDERED: MIDAZOLAM HCL 5 MG/ML-1ML VIAL ONE (09:07)
[2020-11-22] MEDS ORDERED: SODIUM CHLORIDE LOCK 10 ML ONE (09:07)
[2020-11-22] MEDS ORDERED: diphenhdrAMINE HCL 50 MG/1 ML VL ONE (09:08)
[2020-11-22] MEDS ORDERED: fentaNYL CITRATE 100 MCG/2 ML VL ONE (09:08)
[2020-11-22 11:30] VITALS: BP 149/68
== END 2020-11-22 11:50 | disposition home or self-care (01) ==
LOC: GI 07:51
PROVIDERS: ATTEND Internal Medicine Gastroenterology
DX: R10.13 Epigastric pain (principal); K31.89 Other diseases of stomach and duodenum; K31.9 Disease of stomach and duodenum, unspecified; K29.50 Unspecified chronic gastritis without bleeding; D64.9 Anemia, unspecified; F32.9 Major depressive disorder, single episode, unspecified; E11.9 Type 2 diabetes mellitus without complications; K44.9 Diaphragmatic hernia without obstruction or gangrene; Z96.89 Presence of other specified functional implants; Z88.8 Allergy status to other drugs, medicaments and biological substances; Z79.82 Long term (current) use of aspirin; Z79.899 Other long term (current) drug therapy; Z98.51 Tubal ligation status; Z98.890 Other specified postprocedural states; Z20.822 Contact with and (suspected) exposure to COVID-19
CPT/HCPCS: 36415; 43239; 80053; 82962; 85025; 88305; 88342; J2250; J3010; J7030; U0003; G0500

== ENCOUNTER 2020-11-27 00:20 | Inpatient (IN) | payer MEDICARE, MEDICAID ==
[~2020-11-27] VITALS: Ht 152.4 cm; Wt 65.0 kg
[2020-11-27 02:12] LABS: Basophils # (auto) 0 10 ^3/uL (0-0.2); Basophils % (auto) 0.3 % (0.0-2.0); Eosinophils # (auto) 0.1 10 ^3/uL (0-0.8); Eosinophils % (auto) 1.6 % (0.0-7.0); Hematocrit 32.8 % (36.0-46.0); Lymphocytes # (auto) 1.1 10 ^3/uL (0.4-5.4); Lymphocytes % (auto) 18.9 % (10.0-50.0); Mean Corpuscular Hemoglobin 32.8 pg (28.0-32.0); Mean Corpuscular Hgb Conc. 33.6 g/dL (32.0-36.0); Mean Corpuscular Volume 97.7 fL (80.0-100.0); Monocytes # (auto) 0.4 10 ^3/uL (0-1.3); Monocytes % (auto) 6.9 % (0.0-12.0); Neutrophils # (auto) 4.2 10 ^3/uL (1.6-8.6); Neutrophils % (auto) 72.3 % (37.0-80.0); Red Blood Cells 3.35 10^6/uL (4.0-5.20); Red Cell Distribution Width 15.7 % (11.8-14.3); White Blood Cell 5.8 10^3/uL (4.4-10.8)
[2020-11-27 02:19] LABS: INR 1.27 (0.9-1.15); Partial Thromboplastin Time 30.8 sec (23.6-33.0)
[2020-11-27 02:22] LABS: BUN/Creatinine Ratio 9.4; Calcium 8.4 mg/dL (8.5-10.1); Magnesium 2.9 mg/dL (1.6-2.6); Potassium 3.9 mmol/L (3.5-5.1)
[2020-11-27 02:25] LABS: Bilirubin, Total 0.8 mg/dL (0.2-1.0)
[2020-11-27] MEDS ORDERED: metroNIDAZOLE 500MG/100ML 100 ML IV ONE (07:45)
[2020-11-27] MEDS ORDERED: ONDANSETRON HCL 4 MG/2 ML VIAL IV ONE (07:45)
[2020-11-27] MEDS ORDERED: MORPHINE SULFATE 4 MG/ML SYR/VIAL IV ONE (07:45)
[2020-11-27] MEDS ORDERED: SODIUM CHLORIDE 0.9% 1,000 ML IV ONE (07:45)
[2020-11-27 09:02] LABS: Urine Bacteria FEW /hpf (None Seen); Urine Blood 2+ /uL (Negative); Urine Specific Gravity 1.013 (1.001-1.035); Urine WBC 37 /hpf (0 - 5)
[2020-11-27] MEDS ORDERED: levoFLOXacin 250MG 50 ML IV ONE ×2 (15:30→16:15)
[2020-11-27] MEDS ORDERED: MORPHINE SULFATE INJECTION 2 MG/ML SYRG IV PRN ×2 (16:15)
[2020-11-27] MEDS ORDERED: NITROGLYCERIN 0.4 MG SL TAB SL PRN (16:15)
[2020-11-27] MEDS ORDERED: DEXTROSE (50%) 50ML SYRG IV PRN (16:15)
[2020-11-27] MEDS ORDERED: ONDANSETRON HCL 4 MG/2 ML VIAL IV PRN (16:15)
[2020-11-27] MEDS: InsuLIN REG 1unit/0.01ml Soln (100units/ml) SC SCH ×2 (17:00→22:00)
[2020-11-27] MEDS: traMADol HCL 50 MG TAB PO PRN (17:08)
[2020-11-27] MEDS: SUCRALFATE 1 GM/10 ML ORAL SUSP PO SCH ×2 (17:17→22:00)
[2020-11-27] MEDS: ACCU-CHEK COMFORT CURVE STRIP VI SCH ×2 (17:17→22:00)
[2020-11-27 18:40] LABS: Hematocrit 32.5 % (36.0-46.0); Hemoglobin 10.8 g/dL (12.2-16.2)
[2020-11-27] MEDS: PANTOPRAZOLE 40 MG/10 ML VIAL INJ IV SCH (22:00)
[2020-11-27] MEDS: metroNIDAZOLE 500MG/100ML 100 ML IV SCH (22:00)
[2020-11-28 00:31] VITALS: BP 157/56
[2020-11-28 02:16] LABS: Hematocrit 29.4 % (36.0-46.0)
[2020-11-28 05:00] VITALS: BP 141/66
[2020-11-28] MEDS: metroNIDAZOLE 500MG/100ML 100 ML IV SCH ×3 (06:03→21:42)
[2020-11-28] MEDS: SUCRALFATE 1 GM/10 ML ORAL SUSP PO SCH ×4 (06:29→21:43)
[2020-11-28] MEDS: ACCU-CHEK COMFORT CURVE STRIP VI SCH ×4 (06:42→21:44)
[2020-11-28] MEDS: InsuLIN REG 1unit/0.01ml Soln (100units/ml) SC SCH ×4 (06:42→21:44)
[2020-11-28 08:08] LABS: Basophils # (auto) 0 10 ^3/uL (0-0.2); Basophils % (auto) 0.2 % (0.0-2.0); Eosinophils # (auto) 0.1 10 ^3/uL (0-0.8); Eosinophils % (auto) 2.9 % (0.0-7.0); Hematocrit 29.1 % (36.0-46.0); Lymphocytes % (auto) 22.2 % (10.0-50.0); Mean Corpuscular Hemoglobin 33.6 pg (28.0-32.0); Mean Corpuscular Hgb Conc. 34.2 g/dL (32.0-36.0); Mean Corpuscular Volume 98.2 fL (80.0-100.0); Monocytes # (auto) 0.4 10 ^3/uL (0-1.3); Monocytes % (auto) 8.2 % (0.0-12.0); Neutrophils # (auto) 2.9 10 ^3/uL (1.6-8.6); Neutrophils % (auto) 66.5 % (37.0-80.0); Nucleated Red Blood Cells % 0.1 %; Red Blood Cells 2.96 10^6/uL (4.0-5.20); Red Cell Distribution Width 15.6 % (11.8-14.3); White Blood Cell 4.3 10^3/uL (4.4-10.8)
[2020-11-28 08:25] LABS: Albumin 2.8 g/dL (3.4-5.0); Calcium 8.2 mg/dL (8.5-10.1)
[2020-11-28 08:29] LABS: BUN/Creatinine Ratio 9.4; Bilirubin, Total 0.6 mg/dL (0.2-1.0); Total Protein 6.4 g/dL (6.4-8.2)
[2020-11-28 09:00] VITALS: BP 141/62
[2020-11-28] MEDS: PANTOPRAZOLE 40 MG/10 ML VIAL INJ IV SCH ×2 (10:05→21:43)
[2020-11-28] MEDS ORDERED: hydrOXYzine 25 MG TAB or CAP PO PRN (11:00)
[2020-11-28] MEDS: ERGOCALCIFEROL 50,000 UNIT(1.25MG) CAP PO SCH (11:00)
[2020-11-28] MEDS: ACETAMINOPHEN 500 MG TAB PO PRN (11:37)
[2020-11-28] MEDS: Glucerna Carbsteady SHAKE Vanilla 8oz PO SCH ×2 (12:29→18:21)
[2020-11-28 13:00] VITALS: BP 154/70
[2020-11-28] MEDS: GABAPENTIN 100 MG CAP PO SCH ×2 (14:30→21:43)
[2020-11-28 17:00] VITALS: BP 162/53
[2020-11-28] MEDS: busPIRone HCL 10 MG TAB PO SCH (21:42)
[2020-11-28] MEDS: hydrALAZINE HCL 25 MG TAB PO SCH (21:42)
[2020-11-28] MEDS: DOCUSATE SOD 100 MG CAP PO SCH (21:43)
[2020-11-28] MEDS: ATORVASTATIN 20 MG TAB PO SCH (21:43)
[2020-11-28] MEDS: MIRTAZAPINE 30 MG TAB PO SCH (21:44)
[2020-11-28] MEDS: RANOLAZINE ER 500 MG TAB PO SCH (22:08)
[2020-11-28 23:10] VITALS: BP 141/69
[2020-11-29 04:56] VITALS: BP 159/58
[2020-11-29 05:33] LABS: Basophils # (auto) 0 10 ^3/uL (0-0.2); Basophils % (auto) 0.3 % (0.0-2.0); Eosinophils # (auto) 0.2 10 ^3/uL (0-0.8); Eosinophils % (auto) 3.7 % (0.0-7.0); Hematocrit 34.1 % (36.0-46.0); Hemoglobin 11.7 g/dL (12.2-16.2); Lymphocytes # (auto) 0.8 10 ^3/uL (0.4-5.4); Lymphocytes % (auto) 17.2 % (10.0-50.0); Mean Corpuscular Hemoglobin 33.4 pg (28.0-32.0); Mean Corpuscular Hgb Conc. 34.3 g/dL (32.0-36.0); Mean Corpuscular Volume 97.3 fL (80.0-100.0); Monocytes # (auto) 0.5 10 ^3/uL (0-1.3); Monocytes % (auto) 9.3 % (0.0-12.0); Neutrophils # (auto) 3.4 10 ^3/uL (1.6-8.6); Neutrophils % (auto) 69.5 % (37.0-80.0); Nucleated Red Blood Cells % 0.2 %; Red Blood Cells 3.51 10^6/uL (4.0-5.20); Red Cell Distribution Width 15.7 % (11.8-14.3); White Blood Cell 4.9 10^3/uL (4.4-10.8)
[2020-11-29 05:53] LABS: Potassium 3.9 mmol/L (3.5-5.1)
[2020-11-29 06:02] LABS: BUN/Creatinine Ratio 6.7; Bilirubin, Total 0.8 mg/dL (0.2-1.0); Calcium 7.9 mg/dL (8.5-10.1); Total Protein 6.8 g/dL (6.4-8.2)
[2020-11-29] MEDS: GABAPENTIN 100 MG CAP PO SCH ×3 (06:14→21:24)
[2020-11-29] MEDS: metroNIDAZOLE 500MG/100ML 100 ML IV SCH ×3 (06:14→21:23)
[2020-11-29] MEDS: SUCRALFATE 1 GM/10 ML ORAL SUSP PO SCH ×4 (06:14→21:24)
[2020-11-29] MEDS: ACCU-CHEK COMFORT CURVE STRIP VI SCH ×4 (06:15→21:25)
[2020-11-29] MEDS: InsuLIN REG 1unit/0.01ml Soln (100units/ml) SC SCH ×4 (06:23→21:25)
[2020-11-29] MEDS: Glucerna Carbsteady SHAKE Vanilla 8oz PO SCH ×3 (07:54→18:00)
[2020-11-29] MEDS: DOCUSATE SOD 100 MG CAP PO SCH ×2 (09:57→21:24)
[2020-11-29] MEDS: ASPirin-EC 81 mg tab PO SCH (09:57)
[2020-11-29] MEDS: MEGESTROL ACET 400MG/10ML ORAL SUSP PO SCH (09:57)
[2020-11-29] MEDS: RANOLAZINE ER 500 MG TAB PO SCH ×2 (09:57→21:25)
[2020-11-29] MEDS: PANTOPRAZOLE 40 MG/10 ML VIAL INJ IV SCH ×2 (09:59→21:23)
[2020-11-29] MEDS: B-COMPLEX W/ C & FOLIC ACID(NEPHROVITE TAB) PO SCH (09:59)
[2020-11-29] MEDS: levoFLOXacin 250MG 50 ML IV SCH (10:02)
[2020-11-29] MEDS: CLOPIDOGREL BISULFATE 75 MG TAB PO SCH (10:03)
[2020-11-29] MEDS: busPIRone HCL 10 MG TAB PO SCH ×2 (10:03→21:24)
[2020-11-29] MEDS: dilTIAZem HCL 180MG ER CAP PO SCH (10:15)
[2020-11-29] MEDS: hydrALAZINE HCL 25 MG TAB PO SCH ×2 (10:30→21:26)
[2020-11-29] MEDS: ATORVASTATIN 20 MG TAB PO SCH (21:24)
[2020-11-29] MEDS: MIRTAZAPINE 30 MG TAB PO SCH (21:25)
[2020-11-29 22:00] VITALS: BP 139/52
[2020-11-30 05:00] VITALS: BP 130/59
[2020-11-30] MEDS: metroNIDAZOLE 500MG/100ML 100 ML IV SCH ×3 (05:32→22:32)
[2020-11-30] MEDS: SUCRALFATE 1 GM/10 ML ORAL SUSP PO SCH ×4 (05:32→21:24)
[2020-11-30] MEDS: GABAPENTIN 100 MG CAP PO SCH ×3 (05:32→21:25)
[2020-11-30] MEDS: ACCU-CHEK COMFORT CURVE STRIP VI SCH ×4 (05:33→21:27)
[2020-11-30] MEDS: InsuLIN REG 1unit/0.01ml Soln (100units/ml) SC SCH ×4 (06:15→21:14)
[2020-11-30 06:33] LABS: Basophils # (auto) 0 10 ^3/uL (0-0.2); Basophils % (auto) 0.5 % (0.0-2.0); Eosinophils # (auto) 0.2 10 ^3/uL (0-0.8); Eosinophils % (auto) 3.2 % (0.0-7.0); Hematocrit 30.3 % (36.0-46.0); Hemoglobin 10.4 g/dL (12.2-16.2); Lymphocytes % (auto) 16.6 % (10.0-50.0); Mean Corpuscular Hemoglobin 33.5 pg (28.0-32.0); Mean Corpuscular Hgb Conc. 34.3 g/dL (32.0-36.0); Mean Corpuscular Volume 97.7 fL (80.0-100.0); Monocytes # (auto) 0.5 10 ^3/uL (0-1.3); Monocytes % (auto) 7.8 % (0.0-12.0); Neutrophils # (auto) 4.5 10 ^3/uL (1.6-8.6); Neutrophils % (auto) 71.9 % (37.0-80.0); Nucleated Red Blood Cells % 0.1 %; Red Cell Distribution Width 15.6 % (11.8-14.3); White Blood Cell 6.3 10^3/uL (4.4-10.8)
[2020-11-30 06:51] LABS: BUN/Creatinine Ratio 7.3; Calcium 7.7 mg/dL (8.5-10.1); Potassium 4.1 mmol/L (3.5-5.1)
[2020-11-30] MEDS: Glucerna Carbsteady SHAKE Vanilla 8oz PO SCH ×3 (08:00→18:00)
[2020-11-30 09:00] VITALS: BP 111/54
[2020-11-30] MEDS: MEGESTROL ACET 400MG/10ML ORAL SUSP PO SCH (09:49)
[2020-11-30] MEDS: DOCUSATE SOD 100 MG CAP PO SCH ×2 (09:50→21:24)
[2020-11-30] MEDS: ASPirin-EC 81 mg tab PO SCH (09:50)
[2020-11-30] MEDS: CLOPIDOGREL BISULFATE 75 MG TAB PO SCH (09:51)
[2020-11-30] MEDS: traMADol HCL 50 MG TAB PO PRN (09:51)
[2020-11-30] MEDS: dilTIAZem HCL 180MG ER CAP PO SCH (09:52)
[2020-11-30] MEDS: hydrALAZINE HCL 25 MG TAB PO SCH ×2 (09:52→22:33)
[2020-11-30] MEDS: B-COMPLEX W/ C & FOLIC ACID(NEPHROVITE TAB) PO SCH (09:52)
[2020-11-30] MEDS: PANTOPRAZOLE 40 MG/10 ML VIAL INJ IV SCH ×2 (09:53→21:23)
[2020-11-30] MEDS: busPIRone HCL 10 MG TAB PO SCH ×2 (09:53→21:23)
[2020-11-30] MEDS: RANOLAZINE ER 500 MG TAB PO SCH ×2 (09:53→21:26)
[2020-11-30 13:02] VITALS: BP 97/51
[2020-11-30 16:49] VITALS: BP 104/47
[2020-11-30] MEDS: ATORVASTATIN 20 MG TAB PO SCH (21:25)
[2020-11-30] MEDS: MIRTAZAPINE 30 MG TAB PO SCH (21:27)
[2020-11-30 22:00] VITALS: BP 118/55
[2020-12-01 05:00] VITALS: BP 92/47
[2020-12-01] MEDS: InsuLIN REG 1unit/0.01ml Soln (100units/ml) SC SCH ×4 (06:15→21:46)
[2020-12-01] MEDS: ACCU-CHEK COMFORT CURVE STRIP VI SCH ×4 (06:16→21:46)
[2020-12-01] MEDS: metroNIDAZOLE 500MG/100ML 100 ML IV SCH ×3 (06:31→21:07)
[2020-12-01] MEDS: GABAPENTIN 100 MG CAP PO SCH ×3 (06:31→21:10)
[2020-12-01] MEDS: SUCRALFATE 1 GM/10 ML ORAL SUSP PO SCH ×4 (06:31→21:30)
[2020-12-01] MEDS ORDERED: SODIUM CHL 0.9% 1000 ML BAG XX ONE (07:00)
[2020-12-01 07:10] LABS: Basophils # (auto) 0 10 ^3/uL (0-0.2); Basophils % (auto) 0.5 % (0.0-2.0); Eosinophils # (auto) 0.1 10 ^3/uL (0-0.8); Eosinophils % (auto) 1.9 % (0.0-7.0); Hematocrit 29.1 % (36.0-46.0); Hemoglobin 10.1 g/dL (12.2-16.2); Lymphocytes # (auto) 1.1 10 ^3/uL (0.4-5.4); Lymphocytes % (auto) 14.7 % (10.0-50.0); Mean Corpuscular Hemoglobin 33.8 pg (28.0-32.0); Mean Corpuscular Hgb Conc. 34.7 g/dL (32.0-36.0); Mean Corpuscular Volume 97.6 fL (80.0-100.0); Monocytes # (auto) 0.6 10 ^3/uL (0-1.3); Monocytes % (auto) 7.7 % (0.0-12.0); Neutrophils # (auto) 5.7 10 ^3/uL (1.6-8.6); Neutrophils % (auto) 75.2 % (37.0-80.0); Nucleated Red Blood Cells % 0.1 %; Red Blood Cells 2.98 10^6/uL (4.0-5.20); White Blood Cell 7.6 10^3/uL (4.4-10.8)
[2020-12-01 07:20] LABS: Potassium 4.8 mmol/L (3.5-5.1)
[2020-12-01 07:31] LABS: Albumin 2.6 g/dL (3.4-5.0); BUN/Creatinine Ratio 7.5; Bilirubin, Total 0.9 mg/dL (0.2-1.0); Calcium 8.2 mg/dL (8.5-10.1); Total Protein 6.1 g/dL (6.4-8.2)
[2020-12-01 09:00] VITALS: BP 112/55
[2020-12-01] MEDS: Glucerna Carbsteady SHAKE Vanilla 8oz PO SCH ×3 (09:59→17:40)
[2020-12-01] MEDS: hydrALAZINE HCL 25 MG TAB PO SCH ×2 (10:00→21:08)
[2020-12-01] MEDS: dilTIAZem HCL 180MG ER CAP PO SCH (10:00)
[2020-12-01 13:00] VITALS: BP 134/50
[2020-12-01] MEDS: levoFLOXacin 250MG 50 ML IV SCH (13:37)
[2020-12-01] MEDS: MEGESTROL ACET 400MG/10ML ORAL SUSP PO SCH (13:37)
[2020-12-01] MEDS: PANTOPRAZOLE 40 MG/10 ML VIAL INJ IV SCH ×2 (13:37→21:29)
[2020-12-01] MEDS: ASPirin-EC 81 mg tab PO SCH (13:37)
[2020-12-01] MEDS: busPIRone HCL 10 MG TAB PO SCH ×2 (13:37→21:09)
[2020-12-01] MEDS: CLOPIDOGREL BISULFATE 75 MG TAB PO SCH (13:38)
[2020-12-01] MEDS: DOCUSATE SOD 100 MG CAP PO SCH ×2 (13:38→21:09)
[2020-12-01] MEDS: B-COMPLEX W/ C & FOLIC ACID(NEPHROVITE TAB) PO SCH (13:42)
[2020-12-01] MEDS: RANOLAZINE ER 500 MG TAB PO SCH ×2 (13:48→21:30)
[2020-12-01 17:00] VITALS: BP 102/47
[2020-12-01] MEDS: ATORVASTATIN 20 MG TAB PO SCH (21:09)
[2020-12-01] MEDS: MIRTAZAPINE 30 MG TAB PO SCH (21:10)
[2020-12-01 22:00] VITALS: BP 126/44
[2020-12-02 05:00] VITALS: BP 108/40
[2020-12-02] MEDS: InsuLIN REG 1unit/0.01ml Soln (100units/ml) SC SCH ×4 (06:05→23:41)
[2020-12-02] MEDS: ACCU-CHEK COMFORT CURVE STRIP VI SCH ×4 (06:06→23:18)
[2020-12-02 06:26] LABS: Basophils # (auto) 0 10 ^3/uL (0-0.2); Basophils % (auto) 0.3 % (0.0-2.0); Eosinophils # (auto) 0.1 10 ^3/uL (0-0.8); Eosinophils % (auto) 1.3 % (0.0-7.0); Hematocrit 30.4 % (36.0-46.0); Hemoglobin 10.3 g/dL (12.2-16.2); Lymphocytes # (auto) 1.2 10 ^3/uL (0.4-5.4); Lymphocytes % (auto) 14.7 % (10.0-50.0); Mean Corpuscular Hemoglobin 32.7 pg (28.0-32.0); Mean Corpuscular Hgb Conc. 33.9 g/dL (32.0-36.0); Mean Corpuscular Volume 96.5 fL (80.0-100.0); Monocytes # (auto) 0.7 10 ^3/uL (0-1.3); Monocytes % (auto) 8.8 % (0.0-12.0); Neutrophils # (auto) 6.3 10 ^3/uL (1.6-8.6); Neutrophils % (auto) 74.9 % (37.0-80.0); Red Blood Cells 3.15 10^6/uL (4.0-5.20); White Blood Cell 8.5 10^3/uL (4.4-10.8)
[2020-12-02] MEDS: metroNIDAZOLE 500MG/100ML 100 ML IV SCH ×3 (06:30→23:09)
[2020-12-02] MEDS: GABAPENTIN 100 MG CAP PO SCH ×3 (06:31→23:10)
[2020-12-02 06:41] LABS: BUN/Creatinine Ratio 7.8; Potassium 4.2 mmol/L (3.5-5.1)
[2020-12-02] MEDS: Glucerna Carbsteady SHAKE Vanilla 8oz PO SCH ×3 (08:05→17:02)
[2020-12-02] MEDS: SUCRALFATE 1 GM/10 ML ORAL SUSP PO SCH ×4 (08:05→23:18)
[2020-12-02 09:00] VITALS: BP 107/36
[2020-12-02] MEDS: MEGESTROL ACET 400MG/10ML ORAL SUSP PO SCH (09:23)
[2020-12-02] MEDS: PANTOPRAZOLE 40 MG/10 ML VIAL INJ IV SCH ×2 (09:24→23:18)
[2020-12-02] MEDS: CLOPIDOGREL BISULFATE 75 MG TAB PO SCH (09:24)
[2020-12-02] MEDS: RANOLAZINE ER 500 MG TAB PO SCH ×2 (09:24→23:18)
[2020-12-02] MEDS: ASPirin-EC 81 mg tab PO SCH (09:24)
[2020-12-02] MEDS: B-COMPLEX W/ C & FOLIC ACID(NEPHROVITE TAB) PO SCH (09:24)
[2020-12-02] MEDS: busPIRone HCL 10 MG TAB PO SCH ×2 (09:25→23:10)
[2020-12-02] MEDS: DOCUSATE SOD 100 MG CAP PO SCH ×2 (09:25→23:10)
[2020-12-02] MEDS: dilTIAZem HCL 180MG ER CAP PO SCH ×2 (10:00→17:12)
[2020-12-02] MEDS: hydrALAZINE HCL 25 MG TAB PO SCH ×2 (10:00→23:11)
[2020-12-02 13:00] VITALS: BP 128/43
[2020-12-02 16:52] VITALS: BP 144/60
[2020-12-02 22:00] VITALS: BP 127/58
[2020-12-02] MEDS: MIRTAZAPINE 30 MG TAB PO SCH (23:09)
[2020-12-02] MEDS: ATORVASTATIN 20 MG TAB PO SCH (23:10)
[2020-12-03 05:00] VITALS: BP 129/59
[2020-12-03 05:03] LABS: Basophils # (auto) 0 10 ^3/uL (0-0.2); Basophils % (auto) 0.1 % (0.0-2.0); Eosinophils # (auto) 0.2 10 ^3/uL (0-0.8); Hematocrit 30.8 % (36.0-46.0); Hemoglobin 10.2 g/dL (12.2-16.2); Lymphocytes # (auto) 1.4 10 ^3/uL (0.4-5.4); Lymphocytes % (auto) 17.4 % (10.0-50.0); Mean Corpuscular Hemoglobin 32.1 pg (28.0-32.0); Mean Corpuscular Hgb Conc. 33.1 g/dL (32.0-36.0); Mean Corpuscular Volume 97.1 fL (80.0-100.0); Monocytes # (auto) 0.7 10 ^3/uL (0-1.3); Monocytes % (auto) 9.3 % (0.0-12.0); Neutrophils # (auto) 5.7 10 ^3/uL (1.6-8.6); Neutrophils % (auto) 71.2 % (37.0-80.0); Red Blood Cells 3.17 10^6/uL (4.0-5.20); Red Cell Distribution Width 16.1 % (11.8-14.3)
[2020-12-03 05:21] LABS: Potassium 4.5 mmol/L (3.5-5.1)
[2020-12-03 05:23] LABS: BUN/Creatinine Ratio 8.7; Calcium 8.3 mg/dL (8.5-10.1)
[2020-12-03 05:26] LABS: Albumin 2.5 g/dL (3.4-5.0); Bilirubin, Total 0.9 mg/dL (0.2-1.0); Total Protein 6.3 g/dL (6.4-8.2)
[2020-12-03] MEDS: GABAPENTIN 100 MG CAP PO SCH ×4 (06:22→22:24)
[2020-12-03] MEDS: ACCU-CHEK COMFORT CURVE STRIP VI SCH ×4 (06:22→22:23)
[2020-12-03] MEDS: SUCRALFATE 1 GM/10 ML ORAL SUSP PO SCH ×5 (06:22→22:24)
[2020-12-03] MEDS: metroNIDAZOLE 500MG/100ML 100 ML IV SCH ×3 (06:33→22:22)
[2020-12-03] MEDS: InsuLIN REG 1unit/0.01ml Soln (100units/ml) SC SCH ×4 (06:45→22:00)
[2020-12-03 08:30] VITALS: BP 118/56
[2020-12-03] MEDS: B-COMPLEX W/ C & FOLIC ACID(NEPHROVITE TAB) PO SCH (09:37)
[2020-12-03] MEDS: ASPirin-EC 81 mg tab PO SCH (09:37)
[2020-12-03] MEDS: MEGESTROL ACET 400MG/10ML ORAL SUSP PO SCH (09:37)
[2020-12-03] MEDS: hydrALAZINE HCL 25 MG TAB PO SCH ×2 (09:38→22:22)
[2020-12-03] MEDS: CLOPIDOGREL BISULFATE 75 MG TAB PO SCH (09:38)
[2020-12-03] MEDS: RANOLAZINE ER 500 MG TAB PO SCH ×3 (09:38→22:24)
[2020-12-03] MEDS: DOCUSATE SOD 100 MG CAP PO SCH ×2 (09:38→22:23)
[2020-12-03] MEDS: PANTOPRAZOLE 40 MG/10 ML VIAL INJ IV SCH ×2 (09:39→22:22)
[2020-12-03] MEDS: Glucerna Carbsteady SHAKE Vanilla 8oz PO SCH ×3 (09:39→17:38)
[2020-12-03] MEDS: busPIRone HCL 10 MG TAB PO SCH ×2 (09:39→22:22)
[2020-12-03] MEDS: levoFLOXacin 250MG 50 ML IV SCH (09:39)
[2020-12-03] MEDS: dilTIAZem HCL 180MG ER CAP PO SCH (10:00)
[2020-12-03 13:00] VITALS: BP 104/81
[2020-12-03] MEDS ORDERED: LORazepam 2MG/ML-1ML VIAL IV PRN (15:30)
[2020-12-03 16:22] VITALS: BP 129/52
[2020-12-03 22:00] VITALS: BP 136/84
[2020-12-03] MEDS: MIRTAZAPINE 30 MG TAB PO SCH (22:23)
[2020-12-03] MEDS: ATORVASTATIN 20 MG TAB PO SCH (22:23)
[2020-12-03] MEDS: ACETAMINOPHEN 500 MG TAB PO PRN (22:24)
[2020-12-04 05:00] VITALS: BP 122/59
[2020-12-04 05:12] LABS: Basophils # (auto) 0 10 ^3/uL (0-0.2); Basophils % (auto) 0.2 % (0.0-2.0); Eosinophils # (auto) 0.1 10 ^3/uL (0-0.8); Eosinophils % (auto) 0.9 % (0.0-7.0); Hematocrit 29.8 % (36.0-46.0); Lymphocytes # (auto) 1.2 10 ^3/uL (0.4-5.4); Lymphocytes % (auto) 17.3 % (10.0-50.0); Mean Corpuscular Hemoglobin 32.4 pg (28.0-32.0); Mean Corpuscular Hgb Conc. 33.4 g/dL (32.0-36.0); Monocytes # (auto) 0.6 10 ^3/uL (0-1.3); Monocytes % (auto) 8.2 % (0.0-12.0); Neutrophils % (auto) 73.4 % (37.0-80.0); Red Blood Cells 3.07 10^6/uL (4.0-5.20); Red Cell Distribution Width 16.1 % (11.8-14.3); White Blood Cell 6.8 10^3/uL (4.4-10.8)
[2020-12-04 05:34] LABS: Potassium 4.7 mmol/L (3.5-5.1)
[2020-12-04 05:41] LABS: BUN/Creatinine Ratio 9.3; Calcium 8.5 mg/dL (8.5-10.1)
[2020-12-04] MEDS: ACCU-CHEK COMFORT CURVE STRIP VI SCH ×4 (06:30→21:51)
[2020-12-04] MEDS: SUCRALFATE 1 GM/10 ML ORAL SUSP PO SCH ×4 (06:30→21:38)
[2020-12-04] MEDS: GABAPENTIN 100 MG CAP PO SCH ×3 (06:30→21:39)
[2020-12-04] MEDS: metroNIDAZOLE 500MG/100ML 100 ML IV SCH ×3 (06:40→21:46)
[2020-12-04] MEDS: InsuLIN REG 1unit/0.01ml Soln (100units/ml) SC SCH ×4 (06:40→21:51)
[2020-12-04 09:00] VITALS: BP 146/68
[2020-12-04] MEDS: hydrALAZINE HCL 25 MG TAB PO SCH ×2 (10:34→21:38)
[2020-12-04] MEDS: PANTOPRAZOLE 40 MG/10 ML VIAL INJ IV SCH ×2 (10:34→21:38)
[2020-12-04] MEDS: Glucerna Carbsteady SHAKE Vanilla 8oz PO SCH ×3 (10:34→18:00)
[2020-12-04] MEDS: ASPirin-EC 81 mg tab PO SCH (10:35)
[2020-12-04] MEDS: MEGESTROL ACET 400MG/10ML ORAL SUSP PO SCH (10:35)
[2020-12-04] MEDS: DOCUSATE SOD 100 MG CAP PO SCH ×2 (10:35→21:38)
[2020-12-04] MEDS: busPIRone HCL 10 MG TAB PO SCH ×2 (10:35→21:38)
[2020-12-04] MEDS: dilTIAZem HCL 180MG ER CAP PO SCH (10:35)
[2020-12-04] MEDS: B-COMPLEX W/ C & FOLIC ACID(NEPHROVITE TAB) PO SCH (10:36)
[2020-12-04] MEDS: CLOPIDOGREL BISULFATE 75 MG TAB PO SCH (10:36)
[2020-12-04] MEDS: RANOLAZINE ER 500 MG TAB PO SCH ×2 (10:36→21:39)
[2020-12-04 10:54] VITALS: BP 142/62
[2020-12-04 13:00] VITALS: BP 108/53
[2020-12-04 17:00] VITALS: BP 112/47
[2020-12-04] MEDS: MIRTAZAPINE 30 MG TAB PO SCH (21:39)
[2020-12-04] MEDS: ATORVASTATIN 20 MG TAB PO SCH (21:39)
[2020-12-04 22:00] VITALS: BP 120/61
[2020-12-05 05:00] VITALS: BP 117/54
[2020-12-05] MEDS: SUCRALFATE 1 GM/10 ML ORAL SUSP PO SCH ×4 (05:10→21:42)
[2020-12-05] MEDS: GABAPENTIN 100 MG CAP PO SCH ×3 (05:10→21:43)
[2020-12-05] MEDS: metroNIDAZOLE 500MG/100ML 100 ML IV SCH ×3 (05:40→21:44)
[2020-12-05] MEDS: InsuLIN REG 1unit/0.01ml Soln (100units/ml) SC SCH ×4 (06:04→21:43)
[2020-12-05] MEDS: ACCU-CHEK COMFORT CURVE STRIP VI SCH ×4 (06:04→21:43)
[2020-12-05 06:07] LABS: Basophils # (auto) 0 10 ^3/uL (0-0.2); Basophils % (auto) 0.4 % (0.0-2.0); Eosinophils # (auto) 0.1 10 ^3/uL (0-0.8); Eosinophils % (auto) 2.1 % (0.0-7.0); Hematocrit 33.9 % (36.0-46.0); Hemoglobin 11.4 g/dL (12.2-16.2); Lymphocytes # (auto) 1.1 10 ^3/uL (0.4-5.4); Lymphocytes % (auto) 16.9 % (10.0-50.0); Mean Corpuscular Hemoglobin 32.2 pg (28.0-32.0); Mean Corpuscular Hgb Conc. 33.8 g/dL (32.0-36.0); Mean Corpuscular Volume 95.3 fL (80.0-100.0); Monocytes # (auto) 0.6 10 ^3/uL (0-1.3); Monocytes % (auto) 9.3 % (0.0-12.0); Neutrophils # (auto) 4.8 10 ^3/uL (1.6-8.6); Neutrophils % (auto) 71.3 % (37.0-80.0); Nucleated Red Blood Cells % 0.3 %; Red Blood Cells 3.56 10^6/uL (4.0-5.20); Red Cell Distribution Width 16.3 % (11.8-14.3); White Blood Cell 6.8 10^3/uL (4.4-10.8)
[2020-12-05 06:39] LABS: Albumin 2.6 g/dL (3.4-5.0); Calcium 8.8 mg/dL (8.5-10.1); Potassium 5.5 mmol/L (3.5-5.1)
[2020-12-05 06:54] LABS: Bilirubin, Total 1.2 mg/dL (0.2-1.0)
[2020-12-05] MEDS ORDERED: SODIUM CHL 0.9% 1000 ML BAG XX ONE (07:00)
[2020-12-05] MEDS: Glucerna Carbsteady SHAKE Vanilla 8oz PO SCH ×3 (08:00→14:09)
[2020-12-05 09:00] VITALS: BP 118/48
[2020-12-05] MEDS: PANTOPRAZOLE 40 MG/10 ML VIAL INJ IV SCH ×2 (09:17→21:44)
[2020-12-05] MEDS: levoFLOXacin 250MG 50 ML IV SCH (09:17)
[2020-12-05] MEDS: CLOPIDOGREL BISULFATE 75 MG TAB PO SCH (10:00)
[2020-12-05] MEDS: B-COMPLEX W/ C & FOLIC ACID(NEPHROVITE TAB) PO SCH (10:00)
[2020-12-05] MEDS: dilTIAZem HCL 180MG ER CAP PO SCH (10:00)
[2020-12-05] MEDS: DOCUSATE SOD 100 MG CAP PO SCH ×2 (10:00→21:42)
[2020-12-05] MEDS: RANOLAZINE ER 500 MG TAB PO SCH ×2 (10:00→21:43)
[2020-12-05] MEDS: MEGESTROL ACET 400MG/10ML ORAL SUSP PO SCH (10:00)
[2020-12-05] MEDS: busPIRone HCL 10 MG TAB PO SCH ×2 (10:00→21:42)
[2020-12-05] MEDS: hydrALAZINE HCL 25 MG TAB PO SCH ×2 (10:00→21:42)
[2020-12-05] MEDS: ASPirin-EC 81 mg tab PO SCH (10:00)
[2020-12-05] MEDS: ALBUTEROL SULF 2.5 MG/0.5ML(0.5%) NEB SOLN NEB PRN (10:46)
[2020-12-05] MEDS: ERGOCALCIFEROL 50,000 UNIT(1.25MG) CAP PO SCH (11:00)
[2020-12-05 13:00] VITALS: BP 122/52
[2020-12-05 17:00] VITALS: BP 130/56
[2020-12-05] MEDS: ATORVASTATIN 20 MG TAB PO SCH (21:42)
[2020-12-05] MEDS: MIRTAZAPINE 30 MG TAB PO SCH (21:43)
[2020-12-05 22:00] VITALS: BP 145/58
[2020-12-06] MEDS: SUCRALFATE 1 GM/10 ML ORAL SUSP PO SCH ×4 (02:24→21:56)
[2020-12-06] MEDS: GABAPENTIN 100 MG CAP PO SCH ×3 (02:24→21:56)
[2020-12-06 05:00] VITALS: BP 135/54
[2020-12-06 05:58] LABS: Basophils # (auto) 0 10 ^3/uL (0-0.2); Basophils % (auto) 0.3 % (0.0-2.0); Eosinophils # (auto) 0.1 10 ^3/uL (0-0.8); Eosinophils % (auto) 2.3 % (0.0-7.0); Hematocrit 30.3 % (36.0-46.0); Lymphocytes # (auto) 1.2 10 ^3/uL (0.4-5.4); Lymphocytes % (auto) 19.2 % (10.0-50.0); Mean Corpuscular Hemoglobin 31.9 pg (28.0-32.0); Mean Corpuscular Volume 96.7 fL (80.0-100.0); Monocytes # (auto) 0.5 10 ^3/uL (0-1.3); Monocytes % (auto) 8.7 % (0.0-12.0); Neutrophils # (auto) 4.3 10 ^3/uL (1.6-8.6); Neutrophils % (auto) 69.5 % (37.0-80.0); Red Blood Cells 3.14 10^6/uL (4.0-5.20); Red Cell Distribution Width 16.1 % (11.8-14.3); White Blood Cell 6.2 10^3/uL (4.4-10.8)
[2020-12-06] MEDS: metroNIDAZOLE 500MG/100ML 100 ML IV SCH ×3 (06:04→22:49)
[2020-12-06] MEDS: ACCU-CHEK COMFORT CURVE STRIP VI SCH ×3 (06:28→18:12)
[2020-12-06] MEDS: InsuLIN REG 1unit/0.01ml Soln (100units/ml) SC SCH ×3 (06:30→18:00)
[2020-12-06 06:41] LABS: Albumin 2.3 g/dL (3.4-5.0); BUN/Creatinine Ratio 10.6; Calcium 8.7 mg/dL (8.5-10.1); Potassium 4.9 mmol/L (3.5-5.1)
[2020-12-06 06:46] LABS: Bilirubin, Total 1.2 mg/dL (0.2-1.0); Total Protein 6.1 g/dL (6.4-8.2)
[2020-12-06] MEDS: ALBUTEROL SULF 2.5 MG/0.5ML(0.5%) NEB SOLN NEB PRN (06:48)
[2020-12-06] MEDS: Glucerna Carbsteady SHAKE Vanilla 8oz PO SCH ×3 (08:00→17:09)
[2020-12-06] MEDS: PANTOPRAZOLE 40 MG/10 ML VIAL INJ IV SCH ×2 (08:49→22:11)
[2020-12-06] MEDS: cefTRIAXone 1GM/50ML D5W 50 ML IV SCH (08:49)
[2020-12-06] MEDS: hydrALAZINE HCL 25 MG TAB PO SCH ×2 (08:49→21:56)
[2020-12-06] MEDS: dilTIAZem HCL 180MG ER CAP PO SCH (08:50)
[2020-12-06] MEDS: MEGESTROL ACET 400MG/10ML ORAL SUSP PO SCH (08:50)
[2020-12-06] MEDS: DOCUSATE SOD 100 MG CAP PO SCH ×2 (08:50→21:56)
[2020-12-06] MEDS: B-COMPLEX W/ C & FOLIC ACID(NEPHROVITE TAB) PO SCH (08:50)
[2020-12-06] MEDS: ASPirin-EC 81 mg tab PO SCH (08:50)
[2020-12-06] MEDS: CLOPIDOGREL BISULFATE 75 MG TAB PO SCH (08:50)
[2020-12-06] MEDS: busPIRone HCL 10 MG TAB PO SCH ×2 (08:50→21:56)
[2020-12-06] MEDS: RANOLAZINE ER 500 MG TAB PO SCH ×2 (08:51→21:56)
[2020-12-06] MEDS ORDERED: DEXTROSE (50%) 50ML SYRG IV PRN ×2 (12:45→13:15)
[2020-12-06 13:00] VITALS: BP 149/72
[2020-12-06] MEDS ORDERED: CLINIMIX PER PHARMACY 0 ML IV SCH (15:15)
[2020-12-06 15:57] LABS: Magnesium 2.8 mg/dL (1.6-2.6); Phosphorus 4.7 mg/dL (2.5-4.90)
[2020-12-06 16:02] LABS: Pre Albumin 10.1 mg/dL (20.0-40.0)
[2020-12-06 17:00] VITALS: BP 144/67
[2020-12-06] MEDS ORDERED: DEXTROSE (50%) 50ML SYRG IV SCH (18:00)
[2020-12-06] MEDS ORDERED: AMINO ACID INFUSION IN D10W 1,000 ML IV NR (20:00)
[2020-12-06] MEDS: ATORVASTATIN 20 MG TAB PO SCH (21:56)
[2020-12-06] MEDS: MIRTAZAPINE 30 MG TAB PO SCH (21:57)
[2020-12-06 22:00] VITALS: BP 137/55
[2020-12-07] VITALS (7 sets, daily range): BP systolic 123–148; BP diastolic 58–86
[2020-12-07] MEDS: GABAPENTIN 100 MG CAP PO SCH ×3 (05:20→21:39)
[2020-12-07] MEDS: metroNIDAZOLE 500MG/100ML 100 ML IV SCH ×3 (05:45→21:39)
[2020-12-07] MEDS: ACCU-CHEK COMFORT CURVE STRIP VI SCH ×5 (05:45→23:47)
[2020-12-07] MEDS: InsuLIN REG 1unit/0.01ml Soln (100units/ml) SC SCH ×5 (05:46→23:48)
[2020-12-07 05:51] LABS: Basophils # (auto) 0 10 ^3/uL (0-0.2); Basophils % (auto) 0.4 % (0.0-2.0); Eosinophils # (auto) 0.1 10 ^3/uL (0-0.8); Eosinophils % (auto) 0.9 % (0.0-7.0); Lymphocytes # (auto) 0.9 10 ^3/uL (0.4-5.4); Lymphocytes % (auto) 11.6 % (10.0-50.0); Mean Corpuscular Hemoglobin 31.6 pg (28.0-32.0); Mean Corpuscular Hgb Conc. 33.4 g/dL (32.0-36.0); Mean Corpuscular Volume 94.7 fL (80.0-100.0); Monocytes # (auto) 0.6 10 ^3/uL (0-1.3); Monocytes % (auto) 7.9 % (0.0-12.0); Neutrophils # (auto) 6.2 10 ^3/uL (1.6-8.6); Neutrophils % (auto) 79.2 % (37.0-80.0); Red Blood Cells 3.48 10^6/uL (4.0-5.20); Red Cell Distribution Width 16.3 % (11.8-14.3); White Blood Cell 7.8 10^3/uL (4.4-10.8)
[2020-12-07] MEDS: SUCRALFATE 1 GM/10 ML ORAL SUSP PO SCH ×4 (06:15→21:45)
[2020-12-07 06:20] LABS: Potassium 3.8 mmol/L (3.5-5.1)
[2020-12-07 06:33] LABS: Albumin 2.5 g/dL (3.4-5.0); Bilirubin, Total 1.5 mg/dL (0.2-1.0); Calcium 8.2 mg/dL (8.5-10.1); Magnesium 2.9 mg/dL (1.6-2.6); Phosphorus 3.4 mg/dL (2.5-4.90); Total Protein 6.6 g/dL (6.4-8.2)
[2020-12-07] MEDS: Glucerna Carbsteady SHAKE Vanilla 8oz PO SCH ×3 (08:00→18:21)
[2020-12-07] MEDS: RANOLAZINE ER 500 MG TAB PO SCH ×2 (10:00→21:41)
[2020-12-07] MEDS: MEGESTROL ACET 400MG/10ML ORAL SUSP PO SCH (10:00)
[2020-12-07] MEDS: ASPirin-EC 81 mg tab PO SCH (10:00)
[2020-12-07] MEDS: B-COMPLEX W/ C & FOLIC ACID(NEPHROVITE TAB) PO SCH (10:00)
[2020-12-07] MEDS: busPIRone HCL 10 MG TAB PO SCH ×2 (10:00→21:41)
[2020-12-07] MEDS: hydrALAZINE HCL 25 MG TAB PO SCH ×2 (10:00→21:42)
[2020-12-07] MEDS: dilTIAZem HCL 180MG ER CAP PO SCH (10:00)
[2020-12-07] MEDS: CLOPIDOGREL BISULFATE 75 MG TAB PO SCH (10:00)
[2020-12-07] MEDS: DOCUSATE SOD 100 MG CAP PO SCH ×2 (10:00→21:40)
[2020-12-07] MEDS: PANTOPRAZOLE 40 MG/10 ML VIAL INJ IV SCH ×2 (10:13→21:38)
[2020-12-07] MEDS: cefTRIAXone 1GM/50ML D5W 50 ML IV SCH (10:14)
[2020-12-07] MEDS ORDERED: BARIUM SULFATE 98% 340 GM PWDR ONE (13:10)
[2020-12-07] MEDS ORDERED: EZ PAQUE SUSP 12OZ BTL ONE (14:57)
[2020-12-07] MEDS ORDERED: AMINO ACID INFUSION IN D10W 1,000 ML IV NR (20:00)
[2020-12-07] MEDS: ATORVASTATIN 20 MG TAB PO SCH (21:41)
[2020-12-07] MEDS: MIRTAZAPINE 30 MG TAB PO SCH (21:41)
[2020-12-08 05:00] VITALS: BP 107/53
[2020-12-08] MEDS: InsuLIN REG 1unit/0.01ml Soln (100units/ml) SC SCH ×3 (05:43→17:50)
[2020-12-08] MEDS: ACCU-CHEK COMFORT CURVE STRIP VI SCH ×3 (05:43→17:50)
[2020-12-08] MEDS: metroNIDAZOLE 500MG/100ML 100 ML IV SCH ×3 (05:47→22:00)
[2020-12-08] MEDS: GABAPENTIN 100 MG CAP PO SCH ×3 (05:47→21:29)
[2020-12-08] MEDS: SUCRALFATE 1 GM/10 ML ORAL SUSP PO SCH ×4 (06:07→21:42)
[2020-12-08 08:00] VITALS: BP 128/57
[2020-12-08] MEDS: Glucerna Carbsteady SHAKE Vanilla 8oz PO SCH ×3 (08:00→17:50)
[2020-12-08 09:00] VITALS: BP 136/71
[2020-12-08] MEDS: cefTRIAXone 1GM/50ML D5W 50 ML IV SCH ×2 (09:00→11:10)
[2020-12-08] MEDS: RANOLAZINE ER 500 MG TAB PO SCH ×2 (10:00→21:42)
[2020-12-08] MEDS: PANTOPRAZOLE 40 MG/10 ML VIAL INJ IV SCH ×2 (11:10→22:00)
[2020-12-08] MEDS: MEGESTROL ACET 400MG/10ML ORAL SUSP PO SCH (11:10)
[2020-12-08] MEDS: dilTIAZem HCL 180MG ER CAP PO SCH (11:10)
[2020-12-08] MEDS: ASPirin-EC 81 mg tab PO SCH (11:11)
[2020-12-08] MEDS: CLOPIDOGREL BISULFATE 75 MG TAB PO SCH (11:11)
[2020-12-08] MEDS: DOCUSATE SOD 100 MG CAP PO SCH ×2 (11:11→21:30)
[2020-12-08] MEDS: B-COMPLEX W/ C & FOLIC ACID(NEPHROVITE TAB) PO SCH (11:11)
[2020-12-08] MEDS: busPIRone HCL 10 MG TAB PO SCH ×2 (11:11→21:30)
[2020-12-08] MEDS: hydrALAZINE HCL 25 MG TAB PO SCH ×2 (11:12→21:31)
[2020-12-08 13:00] VITALS: BP 136/71
[2020-12-08 17:00] VITALS: BP 131/55
[2020-12-08] MEDS: MIRTAZAPINE 30 MG TAB PO SCH (21:29)
[2020-12-08] MEDS: ATORVASTATIN 20 MG TAB PO SCH (21:30)
[2020-12-08 22:00] VITALS: BP 127/61
[2020-12-09 04:50] VITALS: BP 113/51
[2020-12-09] MEDS: metroNIDAZOLE 500MG/100ML 100 ML IV SCH ×2 (06:00→14:00)
[2020-12-09] MEDS: GABAPENTIN 100 MG CAP PO SCH ×2 (06:11→14:47)
[2020-12-09] MEDS: SUCRALFATE 1 GM/10 ML ORAL SUSP PO SCH ×3 (06:15→18:00)
[2020-12-09] MEDS: InsuLIN REG 1unit/0.01ml Soln (100units/ml) SC SCH ×4 (06:18→19:00)
[2020-12-09] MEDS: ACCU-CHEK COMFORT CURVE STRIP VI SCH ×4 (06:18→18:00)
[2020-12-09 06:49] LABS: Hematocrit 28.4 % (36.0-46.0); Hemoglobin 9.8 g/dL (12.2-16.2)
[2020-12-09] MEDS ORDERED: SODIUM CHL 0.9% 1000 ML BAG XX ONE (07:00)
[2020-12-09 07:22] LABS: % Iron Saturation 42.2 % (15-50)
[2020-12-09] MEDS: Glucerna Carbsteady SHAKE Vanilla 8oz PO SCH ×3 (08:00→18:00)
[2020-12-09] MEDS: cefTRIAXone 1GM/50ML D5W 50 ML IV SCH (09:00)
[2020-12-09] MEDS: PANTOPRAZOLE 40 MG/10 ML VIAL INJ IV SCH (10:00)
[2020-12-09] MEDS: B-COMPLEX W/ C & FOLIC ACID(NEPHROVITE TAB) PO SCH (10:39)
[2020-12-09] MEDS: DOCUSATE SOD 100 MG CAP PO SCH (10:39)
[2020-12-09] MEDS: MEGESTROL ACET 400MG/10ML ORAL SUSP PO SCH (10:39)
[2020-12-09] MEDS: ASPirin-EC 81 mg tab PO SCH (10:39)
[2020-12-09] MEDS: busPIRone HCL 10 MG TAB PO SCH (10:40)
[2020-12-09] MEDS: CLOPIDOGREL BISULFATE 75 MG TAB PO SCH (10:42)
[2020-12-09] MEDS: RANOLAZINE ER 500 MG TAB PO SCH (15:04)
[2020-12-09] MEDS: hydrALAZINE HCL 25 MG TAB PO SCH (15:05)
[2020-12-09] MEDS: dilTIAZem HCL 180MG ER CAP PO SCH (15:05)
[2020-12-09 16:02] VITALS: BP 144/63
== END 2020-12-09 20:51 | DRG 371 ==
LOC: ER 00:22 → OVERFLOW 16:11 → WEST WING 11-28 01:10 → TELE-WESTW 11-30 09:05 → WEST WING 12-08 11:43
PROVIDERS: ADMIT Internal Medicine; ATTEND Internal Medicine
PROC: 5A1D70Z Performance of Urinary Filtration, Intermittent, Less than 6 Hours Per Day (ICD-10-PCS; principal; 2020-11-28)
PROC: 5A1D70Z Performance of Urinary Filtration, Intermittent, Less than 6 Hours Per Day (ICD-10-PCS; 2020-11-30)
PROC: 5A1D70Z Performance of Urinary Filtration, Intermittent, Less than 6 Hours Per Day (ICD-10-PCS; 2020-12-01)
PROC: 5A1D70Z Performance of Urinary Filtration, Intermittent, Less than 6 Hours Per Day (ICD-10-PCS; 2020-12-06)
DX: A04.9 Bacterial intestinal infection, unspecified (principal); N18.6 End stage renal disease; N39.0 Urinary tract infection, site not specified; K92.1 Melena; R18.8 Other ascites; D68.9 Coagulation defect, unspecified; E44.0 Moderate protein-calorie malnutrition; I50.42 Chronic combined systolic (congestive) and diastolic (congestive) heart failure; I13.2 Hypertensive heart and chronic kidney disease with heart failure and with stage 5 chronic kidney disease, or end stage renal disease; K44.9 Diaphragmatic hernia without obstruction or gangrene; I25.10 Atherosclerotic heart disease of native coronary artery without angina pectoris; M85.80 Other specified disorders of bone density and structure, unspecified site; E78.5 Hyperlipidemia, unspecified; D63.1 Anemia in chronic kidney disease; R56.9 Unspecified convulsions; R00.1 Bradycardia, unspecified; I65.22 Occlusion and stenosis of left carotid artery; E88.09 Other disorders of plasma-protein metabolism, not elsewhere classified; D69.6 Thrombocytopenia, unspecified; Z20.822 Contact with and (suspected) exposure to COVID-19; M79.89 Other specified soft tissue disorders; G25.3 Myoclonus; E11.22 Type 2 diabetes mellitus with diabetic chronic kidney disease; R13.10 Dysphagia, unspecified; Z99.2 Dependence on renal dialysis; Z68.23 Body mass index [BMI] 23.0-23.9, adult; Z95.810 Presence of automatic (implantable) cardiac defibrillator; Z79.02 Long term (current) use of antithrombotics/antiplatelets; Z79.82 Long term (current) use of aspirin; Z79.899 Other long term (current) drug therapy; Z83.3 Family history of diabetes mellitus; Z91.15 Patient's noncompliance with renal dialysis; Z88.0 Allergy status to penicillin; Z90.49 Acquired absence of other specified parts of digestive tract; Z86.73 Personal history of transient ischemic attack (TIA), and cerebral infarction without residual deficits
CPT/HCPCS: 36415; 70450; 71045; 74176; 74220; 80048; 80053; 81001; 82040; 82150; 82728; 82962; 83036; 83540; 83550; 83605; 83690; 83735; 84100; 84443; 84478; 85014; 85018; 85025; 85045; 85610; 85652; 85730; 86850; 86900; 86901; 87086; 87340; 87426; 90935; 92610; 92611; 93005; 93306; 93886; 93971; 94640; 95819; 96365; 96375; 97110; 97163; 97530; C9113; G0378; J0696; J1642; J1815; J2405; J3490

== ENCOUNTER 2020-12-18 14:10 | Inpatient (IN) | payer MEDICARE, MEDICAID ==
[~2020-12-18] VITALS: Ht 152.4 cm; Wt 69.9 kg
[~2020-12-18 14:10] MED LIST changes: -ASPI-231 PO; +ASPI1TAB20 PO
[2020-12-18 15:42] LABS: Basophils # (auto) 0 10 ^3/uL (0-0.2); Basophils % (auto) 0.2 % (0.0-2.0); Eosinophils # (auto) 0.1 10 ^3/uL (0-0.8); Eosinophils % (auto) 1.8 % (0.0-7.0); Hematocrit 31.9 % (36.0-46.0); Hemoglobin 10.4 g/dL (12.2-16.2); Lymphocytes # (auto) 0.9 10 ^3/uL (0.4-5.4); Lymphocytes % (auto) 11.6 % (10.0-50.0); Mean Corpuscular Hemoglobin 31.7 pg (28.0-32.0); Mean Corpuscular Hgb Conc. 32.6 g/dL (32.0-36.0); Mean Corpuscular Volume 97.2 fL (80.0-100.0); Monocytes # (auto) 0.6 10 ^3/uL (0-1.3); Monocytes % (auto) 8.5 % (0.0-12.0); Neutrophils # (auto) 5.9 10 ^3/uL (1.6-8.6); Neutrophils % (auto) 77.9 % (37.0-80.0); Nucleated Red Blood Cells % 0.1 %; Red Blood Cells 3.28 10^6/uL (4.0-5.20); Red Cell Distribution Width 18.2 % (11.8-14.3); White Blood Cell 7.6 10^3/uL (4.4-10.8)
[2020-12-18 15:49] LABS: INR 1.49 (0.9-1.15); Partial Thromboplastin Time 37.6 sec (23.6-33.0)
[2020-12-18 15:53] LABS: Albumin 2.3 g/dL (3.4-5.0); Calcium 7.9 mg/dL (8.5-10.1); Potassium 4.2 mmol/L (3.5-5.1)
[2020-12-18 15:57] LABS: BUN/Creatinine Ratio 9.9; Bilirubin, Total 1.2 mg/dL (0.2-1.0); Total Protein 6.4 g/dL (6.4-8.2)
[2020-12-18 17:13] LABS: Urine Bacteria FEW /hpf (None Seen); Urine Blood 2+ /uL (Negative); Urine Specific Gravity 1.015 (1.001-1.035); Urine WBC 48 /hpf (0 - 5)
[2020-12-18] MEDS ORDERED: CIPROFLOXACIN 400MG/200ML 200 ML IV ONE (17:30)
[2020-12-18] MEDS ORDERED: NITROGLYCERIN 0.4 MG SL TAB SL PRN (18:15)
[2020-12-18] MEDS ORDERED: HYDROcodone-ACET 5/325MG TAB PO PRN (18:15)
[2020-12-18] MEDS ORDERED: DEXTROSE (50%) 50ML SYRG IV PRN (18:15)
[2020-12-18] MEDS ORDERED: MORPHINE SULFATE INJECTION 2 MG/ML SYRG IV PRN ×2 (18:15)
[2020-12-18] MEDS ORDERED: ACETAMINOPHEN 500 MG TAB PO PRN (18:15)
[2020-12-18 21:54] LABS: Basophils # (auto) 0 10 ^3/uL (0-0.2); Basophils % (auto) 0.1 % (0.0-2.0); Eosinophils # (auto) 0.1 10 ^3/uL (0-0.8); Eosinophils % (auto) 1.9 % (0.0-7.0); Hematocrit 31.1 % (36.0-46.0); Hemoglobin 10.3 g/dL (12.2-16.2); Lymphocytes # (auto) 1.1 10 ^3/uL (0.4-5.4); Lymphocytes % (auto) 14.2 % (10.0-50.0); Mean Corpuscular Hemoglobin 31.6 pg (28.0-32.0); Mean Corpuscular Hgb Conc. 33.1 g/dL (32.0-36.0); Mean Corpuscular Volume 95.2 fL (80.0-100.0); Monocytes # (auto) 0.8 10 ^3/uL (0-1.3); Monocytes % (auto) 10.4 % (0.0-12.0); Neutrophils # (auto) 5.6 10 ^3/uL (1.6-8.6); Neutrophils % (auto) 73.4 % (37.0-80.0); Nucleated Red Blood Cells % 0.1 %; Red Blood Cells 3.27 10^6/uL (4.0-5.20); Red Cell Distribution Width 18.4 % (11.8-14.3); White Blood Cell 7.6 10^3/uL (4.4-10.8)
[2020-12-18] MEDS: SUCRALFATE 1 GM TAB PO SCH (22:00)
[2020-12-18] MEDS: busPIRone HCL 10 MG TAB PO SCH (22:00)
[2020-12-18] MEDS ORDERED: ATORVASTATIN 20 MG TAB PO SCH (22:00)
[2020-12-18] MEDS: ACCU-CHEK COMFORT CURVE STRIP VI SCH (22:11)
[2020-12-18] MEDS: InsuLIN REG 1unit/0.01ml Soln (100units/ml) SC SCH (22:16)
[2020-12-18] MEDS: PANTOPRAZOLE 40 MG/10 ML VIAL INJ IV SCH (22:21)
[2020-12-19 05:08] LABS: Basophils # (auto) 0 10 ^3/uL (0-0.2); Basophils % (auto) 0.2 % (0.0-2.0); Eosinophils # (auto) 0.2 10 ^3/uL (0-0.8); Eosinophils % (auto) 2.3 % (0.0-7.0); Hematocrit 32.9 % (36.0-46.0); Hemoglobin 10.2 g/dL (12.2-16.2); Lymphocytes # (auto) 1.1 10 ^3/uL (0.4-5.4); Lymphocytes % (auto) 15.5 % (10.0-50.0); Mean Corpuscular Hemoglobin 31.2 pg (28.0-32.0); Mean Corpuscular Hgb Conc. 30.9 g/dL (32.0-36.0); Mean Corpuscular Volume 100.8 fL (80.0-100.0); Monocytes # (auto) 0.8 10 ^3/uL (0-1.3); Monocytes % (auto) 11.1 % (0.0-12.0); Neutrophils % (auto) 70.9 % (37.0-80.0); Nucleated Red Blood Cells % 0.3 %; Red Blood Cells 3.26 10^6/uL (4.0-5.20); Red Cell Distribution Width 19.2 % (11.8-14.3)
[2020-12-19 05:29] LABS: Calcium 7.8 mg/dL (8.5-10.1); Potassium 4.5 mmol/L (3.5-5.1)
[2020-12-19 05:31] LABS: BUN/Creatinine Ratio 10.2
[2020-12-19] MEDS: SUCRALFATE 1 GM TAB PO SCH ×5 (06:46→22:26)
[2020-12-19] MEDS: ACCU-CHEK COMFORT CURVE STRIP VI SCH ×4 (06:51→21:59)
[2020-12-19] MEDS: InsuLIN REG 1unit/0.01ml Soln (100units/ml) SC SCH ×4 (06:51→21:58)
[2020-12-19] MEDS: cefTRIAXone 1GM/50ML D5W 50 ML IV SCH (08:59)
[2020-12-19] MEDS ORDERED: LORazepam 2MG/ML-1ML VIAL IV PRN ×2 (09:15)
[2020-12-19] MEDS: busPIRone HCL 10 MG TAB PO SCH ×3 (10:00→22:25)
[2020-12-19] MEDS: dilTIAZem HCL 180MG ER CAP PO SCH (10:00)
[2020-12-19] MEDS: PANTOPRAZOLE 40 MG/10 ML VIAL INJ IV SCH ×2 (10:20→22:25)
[2020-12-19 14:30] LABS: Cholesterol 90 mg/dL (< 200); Triglycerides 104 mg/dL (< 150)
[2020-12-19 14:32] LABS: HDL Cholesterol 20 mg/dL (40-59); LDL Cholesterol 44 mg/dL (< 100)
[2020-12-19 17:03] LABS: Folate (Folic Acid) > 24.00 ng/mL (5.38-24)
[2020-12-19 22:45] VITALS: BP 119/46
[2020-12-20 05:00] VITALS: BP 121/100
[2020-12-20] MEDS: ACCU-CHEK COMFORT CURVE STRIP VI SCH ×4 (06:21→21:32)
[2020-12-20] MEDS: SUCRALFATE 1 GM TAB PO SCH ×4 (06:22→21:32)
[2020-12-20] MEDS: InsuLIN REG 1unit/0.01ml Soln (100units/ml) SC SCH ×4 (06:22→21:32)
[2020-12-20 08:19] LABS: Calcium 8.3 mg/dL (8.5-10.1); Chloride 97 mmol/L (98-107); Potassium 4.5 mmol/L (3.5-5.1); Sodium 135 mmol/L (136-145)
[2020-12-20 08:23] LABS: Alanine Aminotransferase 9 U/L (13-56); Anion Gap 15 (5-15); Blood Urea Nitrogen 70 mg/dL (7-18); Carbon Dioxide 23 mmol/L (21-32); GFR African American 7 mL/min; GFR Non-African American 6 mL/min; Glucose 97 mg/dL (74-106)
[2020-12-20 08:30] LABS: Alkaline Phosphatase 120 U/L (45-117); Aspartate Aminotransferase 24 U/L (15-37); Bilirubin, Total 1.1 mg/dL (0.2-1.0); Magnesium 2.9 mg/dL (1.6-2.6); Total Protein 6.1 g/dL (6.4-8.2)
[2020-12-20 09:00] VITALS: BP 120/41
[2020-12-20] MEDS: PANTOPRAZOLE 40 MG/10 ML VIAL INJ IV SCH ×2 (09:45→21:31)
[2020-12-20] MEDS: cefTRIAXone 1GM/50ML D5W 50 ML IV SCH (09:46)
[2020-12-20 10:00] LABS: Basophils # (auto) 0 10 ^3/uL (0-0.2); Basophils % (auto) 0.4 % (0.0-2.0); Eosinophils # (auto) 0.2 10 ^3/uL (0-0.8); Eosinophils % (auto) 3.2 % (0.0-7.0); Hematocrit 30.4 % (36.0-46.0); Hemoglobin 10.1 g/dL (12.2-16.2); Lymphocytes # (auto) 1.1 10 ^3/uL (0.4-5.4); Lymphocytes % (auto) 15.6 % (10.0-50.0); Mean Corpuscular Hemoglobin 31.8 pg (28.0-32.0); Mean Corpuscular Hgb Conc. 33.3 g/dL (32.0-36.0); Mean Corpuscular Volume 95.6 fL (80.0-100.0); Monocytes # (auto) 0.6 10 ^3/uL (0-1.3); Monocytes % (auto) 9.3 % (0.0-12.0); Neutrophils % (auto) 71.5 % (37.0-80.0); Nucleated Red Blood Cells % 0.1 %; Red Blood Cells 3.18 10^6/uL (4.0-5.20); Red Cell Distribution Width 18.5 % (11.8-14.3)
[2020-12-20] MEDS: busPIRone HCL 10 MG TAB PO SCH ×2 (10:00→21:32)
[2020-12-20] MEDS: dilTIAZem HCL 180MG ER CAP PO SCH (10:00)
[2020-12-20] MEDS ORDERED: SODIUM CHL 0.9% 1000 ML BAG XX ONE (11:00)
[2020-12-20 13:00] VITALS: BP 126/38
[2020-12-20 17:00] VITALS: BP 126/34
[2020-12-20 22:00] VITALS: BP 126/40
[2020-12-21 05:00] VITALS: BP 147/56
[2020-12-21] MEDS: ACCU-CHEK COMFORT CURVE STRIP VI SCH ×4 (06:45→21:04)
[2020-12-21] MEDS: InsuLIN REG 1unit/0.01ml Soln (100units/ml) SC SCH ×4 (07:00→21:13)
[2020-12-21] MEDS: SUCRALFATE 1 GM TAB PO SCH ×4 (07:00→21:02)
[2020-12-21 07:20] LABS: Hematocrit 31.7 % (36.0-46.0); Hemoglobin 10.3 g/dL (12.2-16.2)
[2020-12-21] MEDS: cefTRIAXone 1GM/50ML D5W 50 ML IV SCH (08:42)
[2020-12-21 09:00] VITALS: BP 141/63
[2020-12-21] MEDS: dilTIAZem HCL 180MG ER CAP PO SCH (10:30)
[2020-12-21] MEDS: PANTOPRAZOLE 40 MG/10 ML VIAL INJ IV SCH ×2 (10:30→21:02)
[2020-12-21] MEDS: busPIRone HCL 10 MG TAB PO SCH ×2 (10:30→21:02)
[2020-12-21 13:00] VITALS: BP 91/69
[2020-12-21 17:00] VITALS: BP 119/50
[2020-12-21 22:00] VITALS: BP 116/51
[2020-12-22 05:00] VITALS: BP 102/75
[2020-12-22] MEDS: ACCU-CHEK COMFORT CURVE STRIP VI SCH ×4 (06:12→21:17)
[2020-12-22] MEDS: InsuLIN REG 1unit/0.01ml Soln (100units/ml) SC SCH ×4 (06:12→21:17)
[2020-12-22] MEDS: SUCRALFATE 1 GM TAB PO SCH ×4 (06:12→21:17)
[2020-12-22 06:16] LABS: Hematocrit 28.2 % (36.0-46.0); Hemoglobin 9.6 g/dL (12.2-16.2)
[2020-12-22 06:34] LABS: INR 1.33 (0.9-1.15)
[2020-12-22] MEDS ORDERED: SODIUM CHL 0.9% 1000 ML BAG XX ONE (07:00)
[2020-12-22 09:00] VITALS: BP 115/41
[2020-12-22] MEDS ORDERED: GOLYTELY 4L KIT PO ONE (09:00)
[2020-12-22] MEDS: PANTOPRAZOLE 40 MG/10 ML VIAL INJ IV SCH ×2 (09:09→21:16)
[2020-12-22] MEDS: cefTRIAXone 1GM/50ML D5W 50 ML IV SCH (09:09)
[2020-12-22] MEDS: busPIRone HCL 10 MG TAB PO SCH ×2 (09:09→21:17)
[2020-12-22] MEDS: dilTIAZem HCL 180MG ER CAP PO SCH (10:00)
[2020-12-22 12:50] VITALS: BP 119/44
[2020-12-22 13:21] LABS: Hepatitis A Ab IgM Negative
[2020-12-22 13:51] LABS: Hepatitis B Core IgM Negative
[2020-12-22 14:27] LABS: Hepatitis C Antibody Negative (Negative)
[2020-12-22 14:28] LABS: Hepatitis B Surface Antigen Negative (Negative)
[2020-12-22 17:00] VITALS: BP 124/70
[2020-12-22 22:00] VITALS: BP 137/61
[2020-12-23 05:00] VITALS: BP 102/71
[2020-12-23] MEDS: ACCU-CHEK COMFORT CURVE STRIP VI SCH ×2 (06:00→11:49)
[2020-12-23] MEDS: InsuLIN REG 1unit/0.01ml Soln (100units/ml) SC SCH ×2 (06:00→11:49)
[2020-12-23] MEDS: SUCRALFATE 1 GM TAB PO SCH ×2 (06:00→11:38)
[2020-12-23 06:06] LABS: Hematocrit 29.1 % (36.0-46.0); Hemoglobin 9.9 g/dL (12.2-16.2)
[2020-12-23 06:28] LABS: Potassium 4.2 mmol/L (3.5-5.1)
[2020-12-23 06:34] LABS: BUN/Creatinine Ratio 9.2; Calcium 8.3 mg/dL (8.5-10.1)
[2020-12-23 08:00] VITALS: BP 161/82
[2020-12-23] MEDS ORDERED: MIDAZOLAM HCL 5 MG/ML-1ML VIAL ONE (08:20)
[2020-12-23] MEDS ORDERED: diphenhdrAMINE HCL 50 MG/1 ML VL ONE (08:20)
[2020-12-23] MEDS ORDERED: SODIUM CHLORIDE LOCK 10 ML ONE (08:20)
[2020-12-23] MEDS ORDERED: fentaNYL CITRATE 100 MCG/2 ML VL ONE (08:21)
[2020-12-23] MEDS: busPIRone HCL 10 MG TAB PO SCH (09:41)
[2020-12-23] MEDS: cefTRIAXone 1GM/50ML D5W 50 ML IV SCH (09:41)
[2020-12-23] MEDS: PANTOPRAZOLE 40 MG/10 ML VIAL INJ IV SCH (09:41)
[2020-12-23] MEDS: dilTIAZem HCL 180MG ER CAP PO SCH (09:41)
[2020-12-23 12:00] VITALS: BP 124/73
[2020-12-23 14:42] VITALS: BP 124/73
[2020-12-23] MEDS ORDERED: Nepro With Carbsteady ButterPecan 8oz Carton PO SCH (18:00)
[2020-12-23] MEDS ORDERED: Pro-Stat SF 30ml Vanilla PO SCH (18:00)
== END 2020-12-23 15:50 | disposition hospice, home (50) | DRG 377 ==
LOC: ER 14:10 → EDBD 14:10 → TELE 18:11 → TELE-WESTW 12-19 20:37
PROVIDERS: ADMIT Nurse Practitioner Acute Care; ATTEND Internal Medicine
PROC: 5A1D70Z Performance of Urinary Filtration, Intermittent, Less than 6 Hours Per Day (ICD-10-PCS; principal; 2020-12-20)
PROC: 5A1D70Z Performance of Urinary Filtration, Intermittent, Less than 6 Hours Per Day (ICD-10-PCS; 2020-12-23)
DX: K62.5 Hemorrhage of anus and rectum (principal); G93.41 Metabolic encephalopathy; N18.6 End stage renal disease; M47.12 Other spondylosis with myelopathy, cervical region; I13.2 Hypertensive heart and chronic kidney disease with heart failure and with stage 5 chronic kidney disease, or end stage renal disease; R47.01 Aphasia; N39.0 Urinary tract infection, site not specified; N25.81 Secondary hyperparathyroidism of renal origin; I50.42 Chronic combined systolic (congestive) and diastolic (congestive) heart failure; L89.150 Pressure ulcer of sacral region, unstageable; I25.10 Atherosclerotic heart disease of native coronary artery without angina pectoris; F01.50 Vascular dementia, unspecified severity, without behavioral disturbance, psychotic disturbance, mood disturbance, and anxiety; E78.5 Hyperlipidemia, unspecified; D63.1 Anemia in chronic kidney disease; E11.22 Type 2 diabetes mellitus with diabetic chronic kidney disease; Z20.822 Contact with and (suspected) exposure to COVID-19; Z88.0 Allergy status to penicillin; G40.901 Epilepsy, unspecified, not intractable, with status epilepticus; M48.02 Spinal stenosis, cervical region; Z51.5 Encounter for palliative care; Z79.02 Long term (current) use of antithrombotics/antiplatelets; Z79.4 Long term (current) use of insulin; Z79.82 Long term (current) use of aspirin; Z79.899 Other long term (current) drug therapy; Z83.3 Family history of diabetes mellitus; Z86.73 Personal history of transient ischemic attack (TIA), and cerebral infarction without residual deficits; Z90.49 Acquired absence of other specified parts of digestive tract; Z95.0 Presence of cardiac pacemaker; Z95.5 Presence of coronary angioplasty implant and graft; Z74.01 Bed confinement status; Z53.20 Procedure and treatment not carried out because of patient's decision for unspecified reasons
CPT/HCPCS: 36415; 70551; 71045; 72141; 74176; 80048; 80053; 80061; 80074; 81001; 82607; 82746; 82962; 83735; 84132; 84443; 84484; 85014; 85018; 85025; 85610; 85730; 87086; 87426; 90935; 93005; 95819; 96365; 96372; 97110; 97530; C9113; G0378; J0696; J1815; J2250; J7060

== ENCOUNTER 2021-01-09 11:15 | Emergency (ER) | payer MEDICARE, MEDICAID ==
[~2021-01-09] VITALS: Ht 162.6 cm; Wt 54.4 kg
[2021-01-09 11:49] VITALS: BP 138/78
[2021-01-09 12:43] LABS: Basophils # (auto) 0 10 ^3/uL (0-0.2); Basophils % (auto) 0.6 % (0.0-2.0); Eosinophils # (auto) 0 10 ^3/uL (0-0.8); Eosinophils % (auto) 0.8 % (0.0-7.0); Hematocrit 37.3 % (36.0-46.0); Hemoglobin 11.2 g/dL (12.2-16.2); Lymphocytes # (auto) 1.1 10 ^3/uL (0.4-5.4); Mean Corpuscular Hemoglobin 31.2 pg (28.0-32.0); Mean Corpuscular Hgb Conc. 30.1 g/dL (32.0-36.0); Mean Corpuscular Volume 103.8 fL (80.0-100.0); Monocytes # (auto) 0.6 10 ^3/uL (0-1.3); Monocytes % (auto) 9.9 % (0.0-12.0); Neutrophils # (auto) 4.1 10 ^3/uL (1.6-8.6); Neutrophils % (auto) 69.7 % (37.0-80.0); Nucleated Red Blood Cells % 0.6 %; Red Blood Cells 3.59 10^6/uL (4.0-5.20); Red Cell Distribution Width 21.7 % (11.8-14.3)
[2021-01-09 15:57] LABS: Albumin 2.9 g/dL (3.4-5.0); Lactic Acid w/Reflex 2.6 mmol/L (0.4-2.0)
[2021-01-09 16:15] LABS: BUN/Creatinine Ratio 8.2; Bilirubin, Total 1.6 mg/dL (0.2-1.0)
== END 2021-01-09 20:24 | disposition left against medical advice (07) ==
LOC: EDBD 11:15 → ER 11:15
DX: R10.9 Unspecified abdominal pain (principal); R53.1 Weakness; I12.0 Hypertensive chronic kidney disease with stage 5 chronic kidney disease or end stage renal disease; E11.22 Type 2 diabetes mellitus with diabetic chronic kidney disease; N18.6 End stage renal disease; Z99.2 Dependence on renal dialysis; Z86.73 Personal history of transient ischemic attack (TIA), and cerebral infarction without residual deficits; Z90.49 Acquired absence of other specified parts of digestive tract; Z95.0 Presence of cardiac pacemaker; Z79.01 Long term (current) use of anticoagulants; Z79.82 Long term (current) use of aspirin; Z79.899 Other long term (current) drug therapy; Z79.4 Long term (current) use of insulin; Z88.0 Allergy status to penicillin
CPT/HCPCS: 36415; 71045; 74176; 80053; 83605; 84484; 85025; 86850; 86900; 86901